=== PATIENT | male | born 1960 | race African-American/Black ===

== ENCOUNTER 2017-04-02 12:57 | Emergency (ER) | payer MEDICARE, OTHER ==
[2017-04-02 14:54] LABS: ADD MAN DIFF? NO
[2017-04-02 14:56] LABS: BASO % 1 % (0-3); EOS % 0 % (0-3); HEMATOCRIT 40.3 % (39.0-53.0); HEMOGLOBIN 13.1 g/dL (13.0-17.5); LYMPH % 18 % (24-48); MEAN CORPUSCULAR HEMOGLOBIN 27 pg (25-35); MEAN CORPUSCULAR HGB CONC 33 g/dL (31-37); MEAN CORPUSCULAR VOLUME 83 fL (79-100); MONO # 0.3 x10^3/uL (0.0-1.1); MONO % 5 % (0-9); NEUT # 4.4 x10^3uL (1.8-7.7); NEUT % 76 % (31-73); PLATELET COUNT 229 x10^3/uL (140-400); RED BLOOD COUNT 4.85 x10^6/uL (4.30-5.70); WHITE BLOOD COUNT 5.8 x10^3/uL (4.0-11.0)
[2017-04-02] MEDS: ONDANSETRON ODT 4 MG TAB.RAPDIS. PO (15:00)
[2017-04-02] MEDS: oxyCODONE/APAP 10/325 1 TAB TABLET PO (15:02)
[2017-04-02 15:07] LABS: ANION GAP 12 (6-14); BLOOD UREA NITROGEN 19 mg/dL (8-26); CALCIUM 9.4 mg/dL (8.5-10.1); CARBON DIOXIDE 23 mmol/L (21-32); CHLORIDE 100 mmol/L (98-107); CREATININE 1.7 mg/dL (0.7-1.3); GFR 50.2; GLUCOSE 83 mg/dL (70-99); POTASSIUM 4.7 mmol/L (3.5-5.1); SODIUM 135 mmol/L (136-145)
[2017-04-02 15:11] LABS: URIC ACID 6.9 mg/dL (3.5-7.2)
== END 2017-04-02 15:45 | disposition home or self-care (01) ==
LOC: ER 12:57
DX: M10.9 Gout, unspecified (principal); E78.00 Pure hypercholesterolemia, unspecified; I10 Essential (primary) hypertension; Z90.49 Acquired absence of other specified parts of digestive tract
CPT/HCPCS: 36415; 73660; 80048; 84550; 85025; 99285; Q0162

== ENCOUNTER → 2018-09-01 | Outpatient (CLI) | payer OTHER ==
[2017-04-02 15:40] VITALS: BP 144/95
--- NOTE | 2018-09-01 11:03 | RAD ---
Left periareolar ultrasound, 09/01/2018: HISTORY: Lump The area of clinical concern posterior to the left ear was carefully scanned. There is a 4 x 9 x 12 mm subcutaneous nodule at that level. It is wider than tall. Its margins appear smooth. It demonstrates slightly hyperechoic and heterogeneous internal echoes. The sonographic appearance is nonspecific, however, this is most likely a lymph node. No abnormal fluid collection or other abnormality is seen in this region Electronically signed by: Mitul Robbins MD (09/01/2018 11:00 AM) [facility]
== END | disposition home or self-care (01) ==
LOC: US 10:01
PROVIDERS: ATTEND Internal Medicine Hematology & Oncology
DX: R22.1 Localized swelling, mass and lump, neck (principal); D64.9 Anemia, unspecified; D72.819 Decreased white blood cell count, unspecified
CPT/HCPCS: 76536

== ENCOUNTER 2018-11-12 20:11 | Inpatient (IN) | payer OTHER, MEDICAID ==
[~2018-11-12] VITALS: Ht 177.8 cm; Wt 99.0 kg
[~2018-11-12 20:11] MED LIST: AMLO10TA8 PO; ATOR40TA59 PO; HYDR-2869 PO; ISOS30TA4 PO
[2018-11-12] MEDS ORDERED: IPRATRPIUM/ALBUTEROL 0.5/2.5MG 3 ML NEBU. NEB ONE (22:45)
[2018-11-12] MEDS ORDERED: ASPIRIN 325 MG TABLET PO ONE (22:45)
[2018-11-12] MEDS ORDERED: DEXAMETHASONE SOD PHOS 20 MG/5 ML VIAL. IV ONE (22:45)
[2018-11-12] MEDS ORDERED: LABETALOL 20 MG/4 ML DISP.SYRIN. IVP ONE (22:45)
[2018-11-12 22:51] LABS: BASO % 1 % (0-3); EOS # 0.1 x10^3/uL (0.0-0.7); EOS % 2 % (0-3); HEMATOCRIT 33.9 % (39.0-53.0); HEMOGLOBIN 11.3 g/dL (13.0-17.5); LYMPH # 1.6 x10^3/uL (1.0-4.8); LYMPH % 28 % (24-48); MEAN CORPUSCULAR HEMOGLOBIN 28 pg (25-35); MEAN CORPUSCULAR HGB CONC 33 g/dL (31-37); MEAN CORPUSCULAR VOLUME 82 fL (79-100); MONO # 0.6 x10^3/uL (0.0-1.1); MONO % 10 % (0-9); NEUT # 3.5 x10^3/uL (1.8-7.7); NEUT % 60 % (31-73); PLATELET COUNT 239 x10^3/uL (140-400); RED BLOOD COUNT 4.11 x10^6/uL (4.30-5.70); WHITE BLOOD COUNT 5.7 x10^3/uL (4.0-11.0)
--- NOTE | 2018-11-12 22:57 | RAD ---
Exam: Chest 2 views INDICATION: Shortness of breath TECHNIQUE: Frontal and lateral views of the chest Comparisons: 10/17/2018 FINDINGS: The cardiomediastinal silhouette and pulmonary vessels are within normal limits. The lung and pleural spaces are clear. IMPRESSION: No acute cardiopulmonary process. Electronically signed by: Marie Hugo MD (11/12/2018 10:54 PM) [facility]
[2018-11-12 23:02] LABS: CALCIUM 9.3 mg/dL (8.5-10.1); CREATININE 1.4 mg/dL (0.7-1.3); GFR 62.6; POTASSIUM 3.5 mmol/L (3.5-5.1)
[2018-11-12 23:08] LABS: ALBUMIN 3.4 g/dL (3.4-5.0); ALBUMIN/GLOBULIN RATIO 0.8 (1.0-1.7); MAGNESIUM 1.4 mg/dL (1.8-2.4); TOTAL BILIRUBIN 0.3 mg/dL (0.2-1.0); TOTAL PROTEIN 7.8 g/dL (6.4-8.2)
--- NOTE | 2018-11-12 23:45 | PHYS DOC ---
Past Medical History Past Medical History: High Cholesterol, Hypertension Additional Past Medical Histor: BORDERLINE DM Past Surgical History: Appendectomy Additional Past Surgical Histo: BILATERAL KNE REPLACEMENTS, INGUINAL HERNIA Additional Information: Quit 10-15 years ago Alcohol Use: None Drug Use: None Adult General Chief Complaint Chief Complaint: HYPERTENSION HPI HPI Patient is a 58 year old [f__sex] who presents with [] Review of Systems Review of Systems Constitutional: Denies fever or chills [] Eyes: Denies change in visual acuity, redness, or eye pain [] HENT: Denies nasal congestion or sore throat [] Respiratory: Denies cough or shortness of breath [] Cardiovascular: No additional information not addressed in HPI [] GI: Denies abdominal pain, nausea, vomiting, bloody stools or diarrhea [] : Denies dysuria or hematuria [] Musculoskeletal: Denies back pain or joint pain [] Integument: Denies rash or skin lesions [] Neurologic: Denies headache, focal weakness or sensory changes [] Endocrine: Denies polyuria or polydipsia [] All other systems were reviewed and found to be within normal limits, except as documented in this note. Current Medications Current Medications Current Medications Medications (Trade) Dose Ordered Sig/Austyn Start Time Stop Time Status Last Admin Dose Admin Albuterol/ Ipratropium (Duoneb) 3 ml 1X ONCE 11/12/18 22:45 11/12/18 22:46 DC 11/12/18 22:59 3 ML Aspirin (Milagros Aspirin) 325 mg 1X ONCE 11/12/18 22:45 11/12/18 22:46 DC 11/12/18 22:57 325 MG Dexamethasone Sodium Phosphate (Decadron) 10 mg 1X ONCE 11/12/18 22:45 11/12/18 22:46 DC 11/12/18 22:57 10 MG Labetalol HCl (Normodyne Iv Push) 20 mg 1X ONCE 11/12/18 22:45 11/12/18 22:46 DC 11/12/18 22:57 20 MG Allergies Allergies Allergies Coded Allergies Type Severity Reaction Last Updated Verified lisinopril Allergy Severe 10/14/18 Yes Penicillins Allergy Intermediate 10/18/18 Yes Physical Exam Physical Exam Constitutional: Well developed, well nourished, no acute distress, non-toxic appearance. [] HENT: Normocephalic, atraumatic, bilateral external ears normal, oropharynx moist, no oral exudates, nose normal. [] Eyes: PERRLA, EOMI, conjunctiva normal, no discharge. [] Neck: Normal range of motion, no tenderness, supple, no stridor. [] Cardiovascular:Heart rate regular rhythm, no murmur [] Lungs & Thorax: Bilateral breath sounds clear to auscultation [] Abdomen: Bowel sounds normal, soft, no tenderness, no masses, no pulsatile masses. [] Skin: Warm, dry, no erythema, no rash. [] Back: No tenderness, no CVA tenderness. [] Extremities: No tenderness, no cyanosis, no clubbing, ROM intact, no edema. [] Neurologic: Alert and oriented X 3, normal motor function, normal sensory function, no focal deficits noted. [] Psychologic: Affect normal, judgement normal, mood normal. [] Current Patient Data Vital Signs Vital Signs Date Time Temp Pulse Resp B/P (MAP) Pulse Ox O2 Delivery O2 Flow Rate FiO2 11/12/18 23:00 100 Room Air 11/12/18 22:57 79 200/110 11/12/18 22:55 18 11/12/18 21:29 98.2 98.2 Lab Values Laboratory Tests Test 11/12/18 22:15 White Blood Count 5.7 x10^3/uL (4.0-11.0) Red Blood Count 4.11 x10^6/uL (4.30-5.70) L Hemoglobin 11.3 g/dL (13.0-17.5) L Hematocrit 33.9 % (39.0-53.0) L Mean Corpuscular Volume 82 fL (79-100) Mean Corpuscular Hemoglobin 28 pg (25-35) Mean Corpuscular Hemoglobin Concent 33 g/dL (31-37) Red Cell Distribution Width 15.0 % (11.5-14.5) H Platelet Count 239 x10^3/uL (140-400) Neutrophils (%) (Auto) 60 % (31-73) Lymphocytes (%) (Auto) 28 % (24-48) Monocytes (%) (Auto) 10 % (0-9) H Eosinophils (%) (Auto) 2 % (0-3) Basophils (%) (Auto) 1 % (0-3) Neutrophils # (Auto) 3.5 x10^3/uL (1.8-7.7) Lymphocytes # (Auto) 1.6 x10^3/uL (1.0-4.8) Monocytes # (Auto) 0.6 x10^3/uL (0.0-1.1) Eosinophils # (Auto) 0.1 x10^3/uL (0.0-0.7) Basophils # (Auto) 0.0 x10^3/uL (0.0-0.2) Sodium Level 141 mmol/L (136-145) Potassium Level 3.5 mmol/L (3.5-5.1) Chloride Level 103 mmol/L (98-107) Carbon Dioxide Level 26 mmol/L (21-32) Anion Gap 12 (6-14) Blood Urea Nitrogen 18 mg/dL (8-26) Creatinine 1.4 mg/dL (0.7-1.3) H Estimated GFR (Cockcroft-Gault) 62.6 BUN/Creatinine Ratio 13 (6-20) Glucose Level 100 mg/dL (70-99) H Lactic Acid Level 0.6 mmol/L (0.4-2.0) Calcium Level 9.3 mg/dL (8.5-10.1) Magnesium Level 1.4 mg/dL (1.8-2.4) L Total Bilirubin 0.3 mg/dL (0.2-1.0) Aspartate Amino Transferase (AST) 29 U/L (15-37) Alanine Aminotransferase (ALT) 56 U/L (16-63) Alkaline Phosphatase 92 U/L (46-116) Creatine Kinase 293 U/L (39-308) Creatine Kinase MB (Mass) 1.3 ng/mL (0.0-3.6) Creatine Kinase MB Relative Index 0.4 % (0-4) Troponin I Quantitative < 0.017 ng/mL (0.000-0.055) EF-Rvr-H-Type Natriuretic Peptide 185 pg/mL (0-124) H Total Protein 7.8 g/dL (6.4-8.2) Albumin 3.4 g/dL (3.4-5.0) Albumin/Globulin Ratio 0.8 (1.0-1.7) L Lipase 181 U/L (73-393) Laboratory Tests 11/12/18 22:15 Laboratory Tests 11/12/18 22:15 EKG EKG @2208 NSR at 87bpm, NO ST elevation, QRS 78ms, QT/QTc 378/455ms Radiology/Procedures Radiology/Procedures [] Course & Med Decision Making Course & Med Decision Making Pertinent Labs and Imaging studies reviewed. (See chart for details) [] Dragon Disclaimer Dragon Disclaimer This electronic medical record was generated, in whole or in part, using a voice recognition dictation system. Departure Departure Impression: Primary Impression: Hypertensive urgency Additional Impressions: Bronchitis Hypomagnesemia Disposition: ADMITTED INPATIENT [facility] Condition: STABLE Referrals: MATTEO HERNANDEZ MD (PCP) Problem Qualifiers AYDEN ALANIZ DO Nov 12, 2018 23:45
[2018-11-12] MEDS ORDERED: hydrALAZINE 20 MG/ML VIAL. IVP ONE (23:55)
[2018-11-12] MEDS ORDERED: cloNIDine HCL 0.1 MG TABLET PO ONE (23:55)
[2018-11-12] MEDS ORDERED: KETOROLAC 15 MG/ML VIAL. IV ONE (23:55)
[2018-11-13] VITALS (7 sets, daily range): BP systolic 122–178; BP diastolic 70–96
[2018-11-13] MEDS ORDERED: ACETAMINOPHEN 325 MG TABLET. PO PRN
[2018-11-13] MEDS ORDERED: hydrALAZINE 20 MG/ML VIAL. IVP PRN
[2018-11-13] MEDS ORDERED: ONDANSETRON PF 4 MG/2 ML VIAL. IV PRN
[2018-11-13] MEDS ORDERED: MAGNESIUM SULFATE 2GM 50 ML IV ONE ×2 (00:30→00:45)
--- NOTE | 2018-11-13 01:21 | RAD ---
CT head without contrast: Reason for examination: Headaches. Hypertensive. Axial images were obtained through the brain. No contrast was administered. Exposure: One or more of the following individualized dose reduction techniques were utilized for this examination: 1. Automated exposure control 2. Adjustment of the mA and/or kV according to patient size 3. Use of iterative reconstruction technique. Ventricular systems are symmetric and not dilated. No midline shift is seen. There is no evidence of intracranial hemorrhage, infarct, mass or edema. No abnormalities are seen at the orbits. There is some mild mucosal disease in the ethmoid sinuses. Remaining paranasal sinuses are clear. Mastoid air cells are clear. No acute skull abnormality is seen. IMPRESSION: No acute intracranial abnormality. Mucosal disease in ethmoid sinuses. Electronically signed by: Bianca Moscoso MD (11/13/2018 1:18 AM) [facility]
--- NOTE | 2018-11-13 06:58 | EKG ---
[facility] [address] [place] [address] Test Date: 2018-11-12 Test Time: 22:08:45 Pat Name: ELENI IRENE Department: Room: 261 1 Gender: M [employer] Operator: : [id number] Requested By: AYDEN ALANIZ Order Number: [id number] Reading MD: Aldair Sanchez MD Measurements Intervals [place] Rate: 86 P: 53 TX: 168 QRS: -18 QRSD: 78 T: 36 QT: 378 QTc: 455 Interpretive Statements SINUS RHYTHM Electronically Signed On 11-13-2018 18:15:22 CDT by Aldair Sanchez MD
[2018-11-13 07:13] LABS: CHOLESTEROL/HDL RATIO 4.6
[2018-11-13] MEDS ORDERED: INSULIN LISPRO 300 UNITS/3 ML VIAL. SQ SCH (08:00)
[2018-11-13] MEDS: IPRATRPIUM/ALBUTEROL 0.5/2.5MG 3 ML NEBU. NEB SCH ×4 (08:17→19:36)
[2018-11-13] MEDS ORDERED: IV DEXTROSE 5% 250 ML BAG. IV PRN ×2 (08:45)
[2018-11-13] MEDS ORDERED: DEXTROSE 50% 25 GM / 50ML DISP.SYRIN. IV PRN ×2 (08:45)
[2018-11-13] MEDS: ISOSORBIDE MONONITRATE ER 30 MG TAB.ER.24H PO SCH (10:23)
[2018-11-13] MEDS: amLODIPine BESYLATE 10 MG TABLET PO SCH (10:24)
--- NOTE | 2018-11-13 11:02 | PDOC1 ---
History and Physical Date of Admission Date of Admission DATE: 11/13/18 TIME: 11:02 Identification/Chief Complaint Chief Complaint 58 yr old male seen in er with uncontrolled hypertension, headache, has known CKD, Troponin i neg x 3 has hx angioedema hx to ACEI Past Medical History Past Medical History Past Medical History Past Medical History Past Medical History: High Cholesterol, Hypertension, obesity Additional Past Medical Histor: BORDERLINE DM Past Surgical History: Appendectomy Additional Past Surgical Histo: BILATERAL KNE REPLACEMENTS, INGUINAL HERNIA Additional Information: Quit 10-15 years ago Alcohol Use: None Drug Use: None PAST SURGICAL HISTORY Past Surgical History: Hernia Repair, Total knee replacement (bilateral), Other FAMILY HISTORY Family History: Hypertension SOCIAL HISTORY Smoke: No ALCOHOL: none Drugs: None Lives: Alone family hx obesity Cardiovascular: HTN, Hyperlipidemia GI: No pertinent hx Heme/Onc: Anemia NOS Musculoskeletal: Osteoarthritis Rheumatologic: No pertinent hx Infectious disease: No pertinent hx Renal/: No pertinent hx, Chronic renal insuff Endocrine: Diabetes Past Surgical History Past Surgical History: Hernia Repair, Total knee replacement, Other Family History Family History: Hypertension Social History Smoke: No ALCOHOL: none Drugs: None Current Problem List Problem List Problems Medical Problems: (1) Bronchitis Status: Acute (2) Hypertensive urgency Status: Acute (3) Hypomagnesemia Status: Acute Current Medications Current Medications Current Medications Aspirin (Milagros Aspirin) 325 mg 1X ONCE PO Last administered on 11/12/18at 22:57; Start 11/12/18 at 22:45; Stop 11/12/18 at 22:46; Status DC Dexamethasone Sodium Phosphate (Decadron) 10 mg 1X ONCE IV Last administered on 11/12/18at 22:57; Start 11/12/18 at 22:45; Stop 11/12/18 at 22:46; Status DC Albuterol/ Ipratropium (Duoneb) 3 ml 1X ONCE NEB Last administered on 11/12/18at 22:59; Start 11/12/18 at 22:45; Stop 11/12/18 at 22:46; Status DC Labetalol HCl (Normodyne Iv Push) 20 mg 1X ONCE IVP Last administered on 10/20 08/06at 22:57; Start 11/12/18 at 22:45; Stop 11/12/18 at 22:46; Status DC Hydralazine HCl (Apresoline Inj) 20 mg 1X ONCE IVP Last administered on 11/13/18at 00:55; Start 11/12/18 at 23:55; Stop 11/12/18 at 23:56; Status DC Clonidine HCl (Catapres) 0.1 mg 1X ONCE PO Last administered on 11/13/18at 00:35; Start 11/12/18 at 23:55; Stop 11/12/18 at 23:56; Status DC Ketorolac Tromethamine (Toradol 15mg Vial) 15 mg 1X ONCE IV Last administered on 11/13/18at 00:35; Start 11/12/18 at 23:55; Stop 11/12/18 at 23:56; Status DC Ondansetron HCl (Zofran) 4 mg PRN Q8HRS PRN IV NAUSEA/VOMITING; Start 11/13/18 at 00:00; Stop 11/13/18 at 23:59 Acetaminophen (Tylenol) 650 mg PRN Q4HRS PRN PO FEVER; Start 11/13/18 at 00:00; Stop 11/13/18 at 23:59 Albuterol/ Ipratropium (Duoneb) 3 ml RTQID NEB Last administered on 11/13/18at 08:17; Start 11/13/18 at 08:00; Stop 11/14/18 at 07:59 Hydralazine HCl (Apresoline Inj) 10 mg PRN Q4HRS PRN IVP ELEVATED BP, SEE COMMENTS; Start 11/13/18 at 00:00 Insulin Human Lispro (HumaLOG) 0-5 UNITS TIDWMEALS SQ ; Start 11/13/18 at 08:00; Stop 11/13/18 at 08:40; Status DC Dextrose (Dextrose 50%-Water Syringe) 12.5 gm PRN Q15MIN PRN IV SEE COMMENTS; Start 11/13/18 at 00:00 Dextrose 250 ml PRN Q15MIN PRN IV SEE COMMENTS; Start 11/13/18 at 00:00 Magnesium Sulfate 50 ml @ 25 mls/hr 1X ONCE IV Last administered on 11/13/18at 00:52; Start 11/13/18 at 00:45; Stop 11/13/18 at 02:44; Status DC Magnesium Sulfate 50 ml @ As Directed STK-MED ONCE IV ; Start 11/13/18 at 00:30; Stop 11/13/18 at 00:32; Status DC Amlodipine Besylate (Norvasc) 10 mg DAILY PO Last administered on 11/13/18at 10:29; Start 11/13/18 at 09:00 Atorvastatin Calcium (Lipitor) 80 mg QHS PO ; Start 11/13/18 at 21:00 Hydralazine HCl (Apresoline) 50 mg TID PO Last administered on 11/13/18at 10:29; Start 11/13/18 at 09:00 Isosorbide Mononitrate (Imdur) 90 mg DAILY PO Last administered on 11/13/18at 10:29; Start 11/13/18 at 09:00 Insulin Human Lispro (HumaLOG) 0-9 UNITS TIDWMEALS SQ ; Start 11/13/18 at 12:00 Dextrose (Dextrose 50%-Water Syringe) 12.5 gm PRN Q15MIN PRN IV SEE COMMENTS; Start 11/13/18 at 08:45; Status UNV Dextrose 250 ml PRN Q15MIN PRN IV SEE COMMENTS; Start 11/13/18 at 08:45; Status UNV Active Scripts Active Atorvastatin Calcium 40 Mg Tablet 80 Mg PO QHS Isosorbide Mononitrate Er (Isosorbide Mononitrate) 30 Mg Tab.er.24h 90 Mg PO DAILY Amlodipine Besylate 10 Mg Tablet 10 Mg PO DAILY Hydralazine Hcl 50 Mg Tablet 50 Mg PO TID Allergies Allergies: Coded Allergies: lisinopril (Verified Allergy, Severe, 10/14/18) angioedema Penicillins (Verified Allergy, Intermediate, 10/18/18) ROS Review of System Review of Systems Review of Systems Constitutional: Denies fever or chills [] Eyes: Denies change in visual acuity, redness, or eye pain [] HENT: Denies nasal congestion or sore throat [] Respiratory: Denies cough or shortness of breath [] Cardiovascular: No additional information not addressed in HPI [] GI: Denies abdominal pain, nausea, vomiting, bloody stools or diarrhea [] : Denies dysuria or hematuria [] Musculoskeletal: Denies back pain or joint pain [] Integument: Denies rash or skin lesions [] Neurologic: Denies headache, focal weakness or sensory changes [] Endocrine: Denies polyuria or polydipsia [] 14 pt systems were reviewed and found to be within normal limits, except as documented HEENT: YES: [place] Physical Exam Physical Exam Physical Exam Physical Exam Constitutional: Well developed, well nourished, no acute distress, non-toxic appearance. [] HENT: Normocephalic, atraumatic, bilateral external ears normal, oropharynx moist, no oral exudates, nose normal. [] Eyes: PERRLA, EOMI, conjunctiva normal, no discharge. [] Neck: Normal range of motion, no tenderness, supple, no stridor. [] Cardiovascular:Heart rate regular rhythm, no murmur [] Lungs & Thorax: Bilateral breath sounds clear to auscultation [] Abdomen: Bowel sounds normal, soft, no tenderness, no masses, no pulsatile masses. [] Skin: Warm, dry, no erythema, no rash. [] Back: No tenderness, no CVA tenderness. [] Extremities: No tenderness, no cyanosis, no clubbing, ROM intact, no edema. [] Neurologic: Alert and oriented X 3, normal motor function, normal sensory function, no focal deficits noted. [] Psychologic: Affect normal, judgement normal, mood normal. [] General: Oriented X3, Cooperative, No acute distress Lungs: Clear to auscultation Abdomen: Normal bowel sounds, Soft Rectal Exam: not examined PELVIC: Examination not indicated Extremities: No cyanosis Neuro: Normal speech, Sensation intact, Cranial nerves 3-12 NL Psych/Mental Status: Mental status NL, Mood NL Vitals Vitals Vital Signs Date Time Temp Pulse Resp B/P (MAP) Pulse Ox O2 Delivery O2 Flow Rate FiO2 11/13/18 10:56 98.1 87 18 178/96 (123) 95 Room Air 98.1 Labs Labs Laboratory Tests Test 11/12/18 22:15 11/13/18 02:50 11/13/18 06:30 White Blood Count 5.7 x10^3/uL (4.0-11.0) Red Blood Count 4.11 x10^6/uL (4.30-5.70) Hemoglobin 11.3 g/dL (13.0-17.5) Hematocrit 33.9 % (39.0-53.0) Mean Corpuscular Volume 82 fL (79-100) Mean Corpuscular Hemoglobin 28 pg (25-35) Mean Corpuscular Hemoglobin Concent 33 g/dL (31-37) Red Cell Distribution Width 15.0 % (11.5-14.5) Platelet Count 239 x10^3/uL (140-400) Neutrophils (%) (Auto) 60 % (31-73) Lymphocytes (%) (Auto) 28 % (24-48) Monocytes (%) (Auto) 10 % (0-9) Eosinophils (%) (Auto) 2 % (0-3) Basophils (%) (Auto) 1 % (0-3) Neutrophils # (Auto) 3.5 x10^3/uL (1.8-7.7) Lymphocytes # (Auto) 1.6 x10^3/uL (1.0-4.8) Monocytes # (Auto) 0.6 x10^3/uL (0.0-1.1) Eosinophils # (Auto) 0.1 x10^3/uL (0.0-0.7) Basophils # (Auto) 0.0 x10^3/uL (0.0-0.2) Sodium Level 141 mmol/L (136-145) Potassium Level 3.5 mmol/L (3.5-5.1) Chloride Level 103 mmol/L (98-107) Carbon Dioxide Level 26 mmol/L (21-32) Anion Gap 12 (6-14) Blood Urea Nitrogen 18 mg/dL (8-26) Creatinine 1.4 mg/dL (0.7-1.3) Estimated GFR (Cockcroft-Gault) 62.6 BUN/Creatinine Ratio 13 (6-20) Glucose Level 100 mg/dL (70-99) Lactic Acid Level 0.6 mmol/L (0.4-2.0) Calcium Level 9.3 mg/dL (8.5-10.1) Magnesium Level 1.4 mg/dL (1.8-2.4) Total Bilirubin 0.3 mg/dL (0.2-1.0) Aspartate Amino Transf (AST/SGOT) 29 U/L (15-37) Alanine Aminotransferase (ALT/SGPT) 56 U/L (16-63) Alkaline Phosphatase 92 U/L (46-116) Creatine Kinase 293 U/L (39-308) Creatine Kinase MB (Mass) 1.3 ng/mL (0.0-3.6) Creatine Kinase MB Relative Index 0.4 % (0-4) Troponin I Quantitative < 0.017 ng/mL (0.000-0.055) < 0.017 ng/mL (0.000-0.055) < 0.017 ng/mL (0.000-0.055) SJ-Xub-X-Type Natriuretic Peptide 185 pg/mL (0-124) Total Protein 7.8 g/dL (6.4-8.2) Albumin 3.4 g/dL (3.4-5.0) Albumin/Globulin Ratio 0.8 (1.0-1.7) Lipase 181 U/L (73-393) Triglycerides Level 38 mg/dL (0-150) Cholesterol Level 220 mg/dL (0-200) LDL Cholesterol, Calculated 164 mg/dL (0-100) VLDL Cholesterol, Calculated 8 mg/dL (0-40) Non-HDL Cholesterol Calculated 172 mg/dL (0-129) HDL Cholesterol 48 mg/dL (40-60) Cholesterol/HDL Ratio 4.6 Laboratory Tests Test 11/12/18 22:15 11/13/18 02:50 11/13/18 06:30 White Blood Count 5.7 x10^3/uL (4.0-11.0) Red Blood Count 4.11 x10^6/uL (4.30-5.70) Hemoglobin 11.3 g/dL (13.0-17.5) Hematocrit 33.9 % (39.0-53.0) Mean Corpuscular Volume 82 fL (79-100) Mean Corpuscular Hemoglobin 28 pg (25-35) Mean Corpuscular Hemoglobin Concent 33 g/dL (31-37) Red Cell Distribution Width 15.0 % (11.5-14.5) Platelet Count 239 x10^3/uL (140-400) Neutrophils (%) (Auto) 60 % (31-73) Lymphocytes (%) (Auto) 28 % (24-48) Monocytes (%) (Auto) 10 % (0-9) Eosinophils (%) (Auto) 2 % (0-3) Basophils (%) (Auto) 1 % (0-3) Neutrophils # (Auto) 3.5 x10^3/uL (1.8-7.7) Lymphocytes # (Auto) 1.6 x10^3/uL (1.0-4.8) Monocytes # (Auto) 0.6 x10^3/uL (0.0-1.1) Eosinophils # (Auto) 0.1 x10^3/uL (0.0-0.7) Basophils # (Auto) 0.0 x10^3/uL (0.0-0.2) Sodium Level 141 mmol/L (136-145) Potassium Level 3.5 mmol/L (3.5-5.1) Chloride Level 103 mmol/L (98-107) Carbon Dioxide Level 26 mmol/L (21-32) Anion Gap 12 (6-14) Blood Urea Nitrogen 18 mg/dL (8-26) Creatinine 1.4 mg/dL (0.7-1.3) Estimated GFR (Cockcroft-Gault) 62.6 BUN/Creatinine Ratio 13 (6-20) Glucose Level 100 mg/dL (70-99) Lactic Acid Level 0.6 mmol/L (0.4-2.0) Calcium Level 9.3 mg/dL (8.5-10.1) Magnesium Level 1.4 mg/dL (1.8-2.4) Total Bilirubin 0.3 mg/dL (0.2-1.0) Aspartate Amino Transf (AST/SGOT) 29 U/L (15-37) Alanine Aminotransferase (ALT/SGPT) 56 U/L (16-63) Alkaline Phosphatase 92 U/L (46-116) Creatine Kinase 293 U/L (39-308) Creatine Kinase MB (Mass) 1.3 ng/mL (0.0-3.6) Creatine Kinase MB Relative Index 0.4 % (0-4) Troponin I Quantitative < 0.017 ng/mL (0.000-0.055) < 0.017 ng/mL (0.000-0.055) < 0.017 ng/mL (0.000-0.055) CE-Odb-O-Type Natriuretic Peptide 185 pg/mL (0-124) Total Protein 7.8 g/dL (6.4-8.2) Albumin 3.4 g/dL (3.4-5.0) Albumin/Globulin Ratio 0.8 (1.0-1.7) Lipase 181 U/L (73-393) Triglycerides Level 38 mg/dL (0-150) Cholesterol Level 220 mg/dL (0-200) LDL Cholesterol, Calculated 164 mg/dL (0-100) VLDL Cholesterol, Calculated 8 mg/dL (0-40) Non-HDL Cholesterol Calculated 172 mg/dL (0-129) HDL Cholesterol 48 mg/dL (40-60) Cholesterol/HDL Ratio 4.6 Images Images Tricuspid Valve TR P. Velocity 345cm/s RAP ESTIMATE 3mmHg TR Peak Gr. 48mmHg RVSP 51mmHg Pulmonary Vein S1 Velocity 69.5cm/s S2 Velocity 45.41cm/s D2 Velocity 45.4cm/s LEFT VENTRICLE The left ventricle is normal size. There is normal left ventricular wall thickness. The left ventricular systolic function is normal. The Ejection Fraction is 55-60%. There is normal LV segmental wall motion. RIGHT VENTRICLE The right ventricle is normal size. The right ventricular systolic function is normal. ATRIA The left atrium size is normal. The right atrium size is normal. The interatrial septum is intact with no evidence for an atrial septal defect or patent foramen ovale as noted on 2-D or Doppler imaging. AORTIC VALVE The aortic valve is mildly thickened but opens well. Doppler and Color Flow revealed no significant aortic regurgitation. There is no significant aortic valvular stenosis. MITRAL VALVE The mitral valve is calcified and myxomatous but opens well. There is no evidence of mitral valve prolapse. There is no mitral valve stenosis. Doppler and Color-flow revealed trace mitral regurgitation. TRICUSPID VALVE The tricuspid valve is normal in structure and function. Doppler and Color Flow revealed trace tricuspid regurgitation. There is moderate pulmonary hypertension. The PA pressure was estimated at 51 mmHg. There is no tricuspid valve stenosis. PULMONIC VALVE The pulmonic valve is not well visualized. Doppler and Color Flow revealed no pulmonic valvular regurgitation. There is no pulmonic valvular stenosis. GREAT VESSELS The aortic root is normal in size. The ascending aorta is normal in size. The IVC is normal in size and collapses >50% with inspiration. PERICARDIAL EFFUSION There is no evidence of significant pericardial effusion. Critical Notification Critical Value: No <Conclusion> The left ventricular systolic function is normal. The Ejection Fraction is 55-60%. There is normal LV segmental wall motion. Trace mitral regurgitation. Trace tricuspid regurgitation. The PA pressure was estimated at 51 mmHg. There is no evidence of significant pericardial effusion. Signed by : Carlos Randolph, Electronically Approved : 10/17/2018 16:40:46 CT head without contrast: Reason for examination: Headaches. Hypertensive. Axial images were obtained through the brain. No contrast was administered. Exposure: One or more of the following individualized dose reduction techniques were utilized for this examination: 1. Automated exposure control 2. Adjustment of the mA and/or kV according to patient size 3. Use of iterative reconstruction technique. Ventricular systems are symmetric and not dilated. No midline shift is seen. There is no evidence of intracranial hemorrhage, infarct, mass or edema. No abnormalities are seen at the orbits. There is some mild mucosal disease in the ethmoid sinuses. Remaining paranasal sinuses are clear. Mastoid air cells are clear. No acute skull abnormality is seen. IMPRESSION: No acute intracranial abnormality. Mucosal disease in ethmoid sinuses. Electronically signed by: Bianca Moscoso MD (11/13/2018 1:18 AM) [facility] VTE Prophylaxis Ordered VTE Prophylaxis Devices: No VTE Pharmacological Prophylaxi: Yes Assessment/Plan Assessment/Plan Impression: Hypertensive urgency, POA ECHO 2018 Ejection Fraction is 55-60%.normal LV segmental wall motion. Trace mitral regurgitation. Trace tricuspid regurgitation. PA pressure was estimated at 51 mmHg. C/W PULM HTN Bronchitis, acute HX diabetes Hypomagnesemia hx Angioedema secondary to lisinopril Dyslipidemia on statin and fish oil hx respiratory failure, secondary to SAMSON induced angioedema. 10/17/18 Chronic kidney disease. on ct head 11/12 No acute intracranial abnormality. Mucosal disease in ethmoid sinuses. ADMITTED cvc bed iv bp support cardiology consult nephrology consult serial troponin i dvt prophylaxis accuchecks 74 MIN pt exam, chart review, > 50% of time spent with exam, chart review, pt care coordination SAMMY DAVE MD Nov 13, 2018 11:02
[2018-11-13] MEDS: INSULIN LISPRO 300 UNITS/3 ML VIAL. SQ SCH ×2 (12:00→16:49)
[2018-11-13] MEDS: guaiFENesin DM 600/30MG 1 TAB TAB.ER.12H PO SCH ×2 (12:56→22:35)
--- NOTE | 2018-11-13 13:28 | PDOC2 ---
CONSULT Date of Consult Date of Consult DATE: 11/13/18 TIME: 13:22 Reason for Consult Reason for Consult: RENAL FAILURE Referring Physician Referring Physician: TENZIN Identification/Chief Complaint Chief Complaint HEADACHE Source Source: Chart review, Patient History of Present Illness Reason for Visit: THIS IS A 58 YR OLD WITH HEADACHE AND ON EVALUATION NOTED TO HAVE HTN URGENCY. CR OF 1.4. HAD SHAUNA LAST MONTH FROM RELATIVE HYPOTENSION WHICH RESOLVED AND CR OF ABOUT 1.5 SEEMS TO ABOUT HIS BASELINE. NO REGULAR NSAID USE. NO OTHER HX AND HE IS ABLE TO EMPTY HIS BLADDER. LOW MAG NOTED WELL. DENIED ANY DIURETIC USE Past Medical History Cardiovascular: HTN, Hyperlipidemia GI: No pertinent hx Heme/Onc: Anemia NOS Musculoskeletal: Osteoarthritis Rheumatologic: No pertinent hx Infectious disease: No pertinent hx Renal/: No pertinent hx, Chronic renal insuff Endocrine: Diabetes Past Surgical History Past Surgical History: Hernia Repair, Total knee replacement, Other Family History Family History: Hypertension Social History No ALCOHOL: none Drugs: None Lives: Alone Current Problem List Problem List Problems Medical Problems: (1) Bronchitis Status: Acute (2) Hypertensive urgency Status: Acute (3) Hypomagnesemia Status: Acute Current Medications Current Medications Current Medications Aspirin (Milagros Aspirin) 325 mg 1X ONCE PO Last administered on 11/12/18at 22:57; Start 11/12/18 at 22:45; Stop 11/12/18 at 22:46; Status DC Dexamethasone Sodium Phosphate (Decadron) 10 mg 1X ONCE IV Last administered on 11/12/18at 22:57; Start 11/12/18 at 22:45; Stop 11/12/18 at 22:46; Status DC Albuterol/ Ipratropium (Duoneb) 3 ml 1X ONCE NEB Last administered on 11/12/18at 22:59; Start 11/12/18 at 22:45; Stop 11/12/18 at 22:46; Status DC Labetalol HCl (Normodyne Iv Push) 20 mg 1X ONCE IVP Last administered on 11/12/18at 22:57; Start 11/12/18 at 22:45; Stop 11/12/18 at 22:46; Status DC Hydralazine HCl (Apresoline Inj) 20 mg 1X ONCE IVP Last administered on 11/13/18at 00:55; Start 11/12/18 at 23:55; Stop 11/12/18 at 23:56; Status DC Clonidine HCl (Catapres) 0.1 mg 1X ONCE PO Last administered on 11/13/18at 00:35; Start 11/12/18 at 23:55; Stop 11/12/18 at 23:56; Status DC Ketorolac Tromethamine (Toradol 15mg Vial) 15 mg 1X ONCE IV Last administered on 11/13/18at 00:35; Start 11/12/18 at 23:55; Stop 11/12/18 at 23:56; Status DC Ondansetron HCl (Zofran) 4 mg PRN Q8HRS PRN IV NAUSEA/VOMITING; Start 11/13/18 at 00:00; Stop 11/13/18 at 23:59 Acetaminophen (Tylenol) 650 mg PRN Q4HRS PRN PO FEVER; Start 11/13/18 at 00:00; Stop 11/13/18 at 23:59 Albuterol/ Ipratropium (Duoneb) 3 ml RTQID NEB Last administered on 11/13/18at 11:57; Start 11/13/18 at 08:00; Stop 11/14/18 at 07:59 Hydralazine HCl (Apresoline Inj) 10 mg PRN Q4HRS PRN IVP ELEVATED BP, SEE COMMENTS; Start 11/13/18 at 00:00 Insulin Human Lispro (HumaLOG) 0-5 UNITS TIDWMEALS SQ ; Start 11/13/18 at 08:00; Stop 11/13/18 at 08:40; Status DC Dextrose (Dextrose 50%-Water Syringe) 12.5 gm PRN Q15MIN PRN IV SEE COMMENTS; Start 11/13/18 at 00:00 Dextrose 250 ml PRN Q15MIN PRN IV SEE COMMENTS; Start 11/13/18 at 00:00 Magnesium Sulfate 50 ml @ 25 mls/hr 1X ONCE IV Last administered on 11/13/18at 00:52; Start 11/13/18 at 00:45; Stop 11/13/18 at 02:44; Status DC Magnesium Sulfate 50 ml @ As Directed STK-MED ONCE IV ; Start 11/13/18 at 00:30; Stop 11/13/18 at 00:32; Status DC Amlodipine Besylate (Norvasc) 10 mg DAILY PO Last administered on 11/13/18at 10:29; Start 11/13/18 at 09:00 Atorvastatin Calcium (Lipitor) 80 mg QHS PO ; Start 11/13/18 at 21:00 Hydralazine HCl (Apresoline) 50 mg TID PO Last administered on 11/13/18at 10:29; Start 11/13/18 at 09:00 Isosorbide Mononitrate (Imdur) 90 mg DAILY PO Last administered on 11/13/18at 10:29; Start 11/13/18 at 09:00 Insulin Human Lispro (HumaLOG) 0-9 UNITS TIDWMEALS SQ ; Start 11/13/18 at 12:00 Dextrose (Dextrose 50%-Water Syringe) 12.5 gm PRN Q15MIN PRN IV SEE COMMENTS; Start 11/13/18 at 08:45; Status UNV Dextrose 250 ml PRN Q15MIN PRN IV SEE COMMENTS; Start 11/13/18 at 08:45; Status UNV Enoxaparin Sodium (Lovenox 40mg Syringe) 40 mg Q24H SQ ; Start 11/13/18 at 16:00 Guaifenesin (MUCINEX ER with DM) 2 tab BID PO Last administered on 11/13/18at 12:57; Start 11/13/18 at 12:30 Active Scripts Active Atorvastatin Calcium 40 Mg Tablet 80 Mg PO QHS Isosorbide Mononitrate Er (Isosorbide Mononitrate) 30 Mg Tab.er.24h 90 Mg PO DAILY Amlodipine Besylate 10 Mg Tablet 10 Mg PO DAILY Hydralazine Hcl 50 Mg Tablet 50 Mg PO TID Allergies Allergies: Coded Allergies: lisinopril (Verified Allergy, Severe, 10/14/18) angioedema Penicillins (Verified Allergy, Intermediate, 10/18/18) ROS Review of System FULL ROS NEG EXCEPT BELOW General: YES: Fatigue PSYCHOLOGICAL ROS: YES: Anxiety Eyes: Yes Decreased vision HEENT: YES: Heacaches Genitourinary: YES Other (NOCTURIA) Musculoskeletal: Yes Muscular Weakness Neurological: Yes Weakness Skin: Yes Dry Skin Physical Exam General: Alert, Oriented X3, Cooperative, No acute distress HEENT: Atraumatic, PERRLA, EOMI Lungs: Clear to auscultation Heart: Regular rate Abdomen: Normal bowel sounds, Soft, No tenderness Extremities: No cyanosis Skin: No breakdown Neuro: Normal speech, Sensation intact Psych/Mental Status: Mental status NL, Mood NL MUSCULOSKELETAL: No joint tenderness, No deformity, No swelling Vitals VITALS Vital Signs Date Time Temp Pulse Resp B/P (MAP) Pulse Ox O2 Delivery O2 Flow Rate FiO2 11/13/18 11:57 99 Room Air 11/13/18 10:56 98.1 87 18 178/96 (123) 98.1 Labs Labs Laboratory Tests Test 11/12/18 22:15 11/13/18 02:50 11/13/18 06:30 White Blood Count 5.7 x10^3/uL (4.0-11.0) Red Blood Count 4.11 x10^6/uL (4.30-5.70) Hemoglobin 11.3 g/dL (13.0-17.5) Hematocrit 33.9 % (39.0-53.0) Mean Corpuscular Volume 82 fL (79-100) Mean Corpuscular Hemoglobin 28 pg (25-35) Mean Corpuscular Hemoglobin Concent 33 g/dL (31-37) Red Cell Distribution Width 15.0 % (11.5-14.5) Platelet Count 239 x10^3/uL (140-400) Neutrophils (%) (Auto) 60 % (31-73) Lymphocytes (%) (Auto) 28 % (24-48) Monocytes (%) (Auto) 10 % (0-9) Eosinophils (%) (Auto) 2 % (0-3) Basophils (%) (Auto) 1 % (0-3) Neutrophils # (Auto) 3.5 x10^3/uL (1.8-7.7) Lymphocytes # (Auto) 1.6 x10^3/uL (1.0-4.8) Monocytes # (Auto) 0.6 x10^3/uL (0.0-1.1) Eosinophils # (Auto) 0.1 x10^3/uL (0.0-0.7) Basophils # (Auto) 0.0 x10^3/uL (0.0-0.2) Sodium Level 141 mmol/L (136-145) Potassium Level 3.5 mmol/L (3.5-5.1) Chloride Level 103 mmol/L (98-107) Carbon Dioxide Level 26 mmol/L (21-32) Anion Gap 12 (6-14) Blood Urea Nitrogen 18 mg/dL (8-26) Creatinine 1.4 mg/dL (0.7-1.3) Estimated GFR (Cockcroft-Gault) 62.6 BUN/Creatinine Ratio 13 (6-20) Glucose Level 100 mg/dL (70-99) Lactic Acid Level 0.6 mmol/L (0.4-2.0) Calcium Level 9.3 mg/dL (8.5-10.1) Magnesium Level 1.4 mg/dL (1.8-2.4) 2.0 mg/dL (1.8-2.4) Total Bilirubin 0.3 mg/dL (0.2-1.0) Aspartate Amino Transf (AST/SGOT) 29 U/L (15-37) Alanine Aminotransferase (ALT/SGPT) 56 U/L (16-63) Alkaline Phosphatase 92 U/L (46-116) Creatine Kinase 293 U/L (39-308) Creatine Kinase MB (Mass) 1.3 ng/mL (0.0-3.6) Creatine Kinase MB Relative Index 0.4 % (0-4) Troponin I Quantitative < 0.017 ng/mL (0.000-0.055) < 0.017 ng/mL (0.000-0.055) < 0.017 ng/mL (0.000-0.055) LX-Oez-X-Type Natriuretic Peptide 185 pg/mL (0-124) Total Protein 7.8 g/dL (6.4-8.2) Albumin 3.4 g/dL (3.4-5.0) Albumin/Globulin Ratio 0.8 (1.0-1.7) Lipase 181 U/L (73-393) Triglycerides Level 38 mg/dL (0-150) Cholesterol Level 220 mg/dL (0-200) LDL Cholesterol, Calculated 164 mg/dL (0-100) VLDL Cholesterol, Calculated 8 mg/dL (0-40) Non-HDL Cholesterol Calculated 172 mg/dL (0-129) HDL Cholesterol 48 mg/dL (40-60) Cholesterol/HDL Ratio 4.6 Laboratory Tests Test 11/12/18 22:15 11/13/18 02:50 11/13/18 06:30 White Blood Count 5.7 x10^3/uL (4.0-11.0) Red Blood Count 4.11 x10^6/uL (4.30-5.70) Hemoglobin 11.3 g/dL (13.0-17.5) Hematocrit 33.9 % (39.0-53.0) Mean Corpuscular Volume 82 fL (79-100) Mean Corpuscular Hemoglobin 28 pg (25-35) Mean Corpuscular Hemoglobin Concent 33 g/dL (31-37) Red Cell Distribution Width 15.0 % (11.5-14.5) Platelet Count 239 x10^3/uL (140-400) Neutrophils (%) (Auto) 60 % (31-73) Lymphocytes (%) (Auto) 28 % (24-48) Monocytes (%) (Auto) 10 % (0-9) Eosinophils (%) (Auto) 2 % (0-3) Basophils (%) (Auto) 1 % (0-3) Neutrophils # (Auto) 3.5 x10^3/uL (1.8-7.7) Lymphocytes # (Auto) 1.6 x10^3/uL (1.0-4.8) Monocytes # (Auto) 0.6 x10^3/uL (0.0-1.1) Eosinophils # (Auto) 0.1 x10^3/uL (0.0-0.7) Basophils # (Auto) 0.0 x10^3/uL (0.0-0.2) Sodium Level 141 mmol/L (136-145) Potassium Level 3.5 mmol/L (3.5-5.1) Chloride Level 103 mmol/L (98-107) Carbon Dioxide Level 26 mmol/L (21-32) Anion Gap 12 (6-14) Blood Urea Nitrogen 18 mg/dL (8-26) Creatinine 1.4 mg/dL (0.7-1.3) Estimated GFR (Cockcroft-Gault) 62.6 BUN/Creatinine Ratio 13 (6-20) Glucose Level 100 mg/dL (70-99) Lactic Acid Level 0.6 mmol/L (0.4-2.0) Calcium Level 9.3 mg/dL (8.5-10.1) Magnesium Level 1.4 mg/dL (1.8-2.4) 2.0 mg/dL (1.8-2.4) Total Bilirubin 0.3 mg/dL (0.2-1.0) Aspartate Amino Transf (AST/SGOT) 29 U/L (15-37) Alanine Aminotransferase (ALT/SGPT) 56 U/L (16-63) Alkaline Phosphatase 92 U/L (46-116) Creatine Kinase 293 U/L (39-308) Creatine Kinase MB (Mass) 1.3 ng/mL (0.0-3.6) Creatine Kinase MB Relative Index 0.4 % (0-4) Troponin I Quantitative < 0.017 ng/mL (0.000-0.055) < 0.017 ng/mL (0.000-0.055) < 0.017 ng/mL (0.000-0.055) GB-Xhz-J-Type Natriuretic Peptide 185 pg/mL (0-124) Total Protein 7.8 g/dL (6.4-8.2) Albumin 3.4 g/dL (3.4-5.0) Albumin/Globulin Ratio 0.8 (1.0-1.7) Lipase 181 U/L (73-393) Triglycerides Level 38 mg/dL (0-150) Cholesterol Level 220 mg/dL (0-200) LDL Cholesterol, Calculated 164 mg/dL (0-100) VLDL Cholesterol, Calculated 8 mg/dL (0-40) Non-HDL Cholesterol Calculated 172 mg/dL (0-129) HDL Cholesterol 48 mg/dL (40-60) Cholesterol/HDL Ratio 4.6 Assessment/Plan Assessment/Plan IMP MALIGNANT HTN AND URGENCY HEADACHE DUE TO ABOVE HYPOMAGNESEMIA CKD STAGE 2-MOST LIKELY DUE TO HTN HX OF SHAUNA LAST MONTH-FROM RELATIVE HYPOTENSION-RESOLVED HX OF 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
--- NOTE | 2018-11-13 13:28 | PDOC2 ---
CARDIAC CONSULT DATE OF CONSULT Date of Consult DATE: 11/13/18 TIME: 13:22 REASON FOR CONSULT Reason for Consult: Uncontrolled blood pressure REFERRING PHYSICIAN Referring Physician: Dr. Lamar SOURCE Source: Chart review, Patient HISTORY OF PRESENT ILLNESS HISTORY OF PRESENT ILLNESS This is a 58 yo male who presented secondary to elevated blood pressure and headache. Patient was seen by our service last month for accelerated hypertension and angioedema related to lisinopril. Over the last 3 days, blood pressure has been significantly elevated. Associated with ST. Yesterday, began having tightness in his chest so he decided to come to the ED for further evaluation and treatment. Denies any dizziness, diaphoresis, SOA, or nausea/vomiting. PAST MEDICAL HISTORY Past Medical History Cardiovascular: HTN, Hyperlipidemia GI: No pertinent hx Heme/Onc: Anemia NOS Musculoskeletal: Osteoarthritis Rheumatologic: No pertinent hx Infectious disease: No pertinent hx ENT: No pertinent hx Renal/: CKD Endocrine: Diabetes (borderline) Dermatology: No pertinent hx PAST SURGICAL HISTORY Past Surgical History Hernia Repair, Total knee replacement (bilateral), Other FAMILY HISTORY Family History: Hypertension SOCIAL HISTORY Social History Smoke: No ALCOHOL: none Drugs: None Lives: Alone CURRENT MEDICATIONS CURRENT MEDICATIONS Current Medications Medications (Trade) Dose Ordered Sig/Austyn Route PRN Reason Start Time Stop Time Status Last Admin Dose Admin Aspirin (Milagros Aspirin) 325 mg 1X ONCE PO 11/12/18 22:45 11/12/18 22:46 DC 11/12/18 22:57 Dexamethasone Sodium Phosphate (Decadron) 10 mg 1X ONCE IV 11/12/18 22:45 11/12/18 22:46 DC 11/12/18 22:57 Albuterol/ Ipratropium (Duoneb) 3 ml 1X ONCE NEB 11/12/18 22:45 11/12/18 22:46 DC 11/12/18 22:59 Labetalol HCl (Normodyne Iv Push) 20 mg 1X ONCE IVP 11/12/18 22:45 11/12/18 22:46 DC 11/12/18 22:57 Hydralazine HCl (Apresoline Inj) 20 mg 1X ONCE IVP 11/12/18 23:55 11/12/18 23:56 DC 11/13/18 00:55 Clonidine HCl (Catapres) 0.1 mg 1X ONCE PO 11/12/18 23:55 11/12/18 23:56 DC 11/13/18 00:35 Ketorolac Tromethamine (Toradol 15mg Vial) 15 mg 1X ONCE IV 11/12/18 23:55 11/12/18 23:56 DC 11/13/18 00:35 Albuterol/ Ipratropium (Duoneb) 3 ml RTQID NEB 11/13/18 08:00 11/14/18 07:59 11/13/18 11:57 Magnesium Sulfate 50 ml @ 25 mls/hr 1X ONCE IV 11/13/18 00:45 11/13/18 02:44 DC 11/13/18 00:52 Amlodipine Besylate (Norvasc) 10 mg DAILY PO 11/13/18 09:00 11/13/18 10:29 Hydralazine HCl (Apresoline) 50 mg TID PO 11/13/18 09:00 11/13/18 10:29 Isosorbide Mononitrate (Imdur) 90 mg DAILY PO 11/13/18 09:00 11/13/18 10:29 Guaifenesin (MUCINEX ER with DM) 2 tab BID PO 11/13/18 12:30 11/13/18 12:57 ALLERGIES ALLERGIES: Coded Allergies: lisinopril (Verified Allergy, Severe, 10/14/18) angioedema Penicillins (Verified Allergy, Intermediate, 10/18/18) ROS Review of System 14 point ROS conducted with pertinent positives noted above in HPI. PHYSICAL EXAM PHYSICAL EXAM General: Alert, Oriented X3, Cooperative, No acute distress HEENT: Atraumatic, Lungs: Other (diminished bases) Heart: Regular rate (SR), Normal S1, Normal S2, Other (2/6 systolic murmur to LLS border) Abdomen: Soft, No tenderness Extremities: No cyanosis Skin: No breakdown, No significant lesion Neuro: Normal speech, Sensation intact Psych/Mental Status: Mental status NL, MUSCULOSKELETAL: Osteoarthritic changes both hands VITALS/I&O VITALS/I&O: Vital Signs Date Time Temp Pulse Resp B/P (MAP) Pulse Ox O2 Delivery O2 Flow Rate FiO2 11/13/18 11:57 99 Room Air 11/13/18 10:56 98.1 87 18 178/96 (123) 98.1 I & O 11/12/18 11/12/18 11/13/18 15:00 23:00 07:00 Intake Total 300 ml Balance 300 ml LABS Lab: Laboratory Tests Test 11/12/18 22:15 11/13/18 02:50 11/13/18 06:30 White Blood Count 5.7 x10^3/uL (4.0-11.0) Red Blood Count 4.11 x10^6/uL (4.30-5.70) L Hemoglobin 11.3 g/dL (13.0-17.5) L Hematocrit 33.9 % (39.0-53.0) L Mean Corpuscular Volume 82 fL (79-100) Mean Corpuscular Hemoglobin 28 pg (25-35) Mean Corpuscular Hemoglobin Concent 33 g/dL (31-37) Red Cell Distribution Width 15.0 % (11.5-14.5) H Platelet Count 239 x10^3/uL (140-400) Neutrophils (%) (Auto) 60 % (31-73) Lymphocytes (%) (Auto) 28 % (24-48) Monocytes (%) (Auto) 10 % (0-9) H Eosinophils (%) (Auto) 2 % (0-3) Basophils (%) (Auto) 1 % (0-3) Neutrophils # (Auto) 3.5 x10^3/uL (1.8-7.7) Lymphocytes # (Auto) 1.6 x10^3/uL (1.0-4.8) Monocytes # (Auto) 0.6 x10^3/uL (0.0-1.1) Eosinophils # (Auto) 0.1 x10^3/uL (0.0-0.7) Basophils # (Auto) 0.0 x10^3/uL (0.0-0.2) Sodium Level 141 mmol/L (136-145) Potassium Level 3.5 mmol/L (3.5-5.1) Chloride Level 103 mmol/L (98-107) Carbon Dioxide Level 26 mmol/L (21-32) Anion Gap 12 (6-14) Blood Urea Nitrogen 18 mg/dL (8-26) Creatinine 1.4 mg/dL (0.7-1.3) H Estimated GFR (Cockcroft-Gault) 62.6 BUN/Creatinine Ratio 13 (6-20) Glucose Level 100 mg/dL (70-99) H Lactic Acid Level 0.6 mmol/L (0.4-2.0) Calcium Level 9.3 mg/dL (8.5-10.1) Magnesium Level 1.4 mg/dL (1.8-2.4) L 2.0 mg/dL (1.8-2.4) Total Bilirubin 0.3 mg/dL (0.2-1.0) Aspartate Amino Transferase (AST) 29 U/L (15-37) Alanine Aminotransferase (ALT) 56 U/L (16-63) Alkaline Phosphatase 92 U/L (46-116) Creatine Kinase 293 U/L (39-308) Creatine Kinase MB (Mass) 1.3 ng/mL (0.0-3.6) Creatine Kinase MB Relative Index 0.4 % (0-4) Troponin I Quantitative < 0.017 ng/mL (0.000-0.055) < 0.017 ng/mL (0.000-0.055) < 0.017 ng/mL (0.000-0.055) HH-Lfi-I-Type Natriuretic Peptide 185 pg/mL (0-124) H Total Protein 7.8 g/dL (6.4-8.2) Albumin 3.4 g/dL (3.4-5.0) Albumin/Globulin Ratio 0.8 (1.0-1.7) L Lipase 181 U/L (73-393) Triglycerides Level 38 mg/dL (0-150) Cholesterol Level 220 mg/dL (0-200) H LDL Cholesterol, Calculated 164 mg/dL (0-100) H VLDL Cholesterol, Calculated 8 mg/dL (0-40) Non-HDL Cholesterol Calculated 172 mg/dL (0-129) H HDL Cholesterol 48 mg/dL (40-60) Cholesterol/HDL Ratio 4.6 Laboratory Tests 11/12/18 22:15 Laboratory Tests 11/12/18 22:15 ECHOCARDIOGRAM ECHOCARDIOGRAM <Conclusion> The left ventricular systolic function is normal. The Ejection Fraction is 55-60%. There is normal LV segmental wall motion. Trace mitral regurgitation. Trace tricuspid regurgitation. The PA pressure was estimated at 51 mmHg. There is no evidence of significant pericardial effusion. DATE: 10/17/18 1640 ASSESSMENT/PLAN ASSESSMENT/PLAN 1. Malignant hypertension; remains elevated. 2. Chest pain, atypical. Most probably related to #1. Resolved with BP control 3. CKD 4. Hyperlipidemia 5. Hypomagnesemia Continue Norvasc, Imdur, and hydralazine. BB added. If BP remains uncontrolled, consider renal duplex to r/o GEOFFREY. No SAMSON/ARB due to h/o angioedema Consider outpatient ischemic evaluation Supportive care. ALICIA RASMUSSEN APRN Nov 13, 2018 13:28
[2018-11-13] MEDS: METOPROLOL TART IMMED RELEASE 25 MG TABLET. PO SCH ×2 (14:15→22:34)
--- NOTE | 2018-11-13 15:54 | NUR ---
SS following for discharge planning. SS reviewed pt chart. Pt is from home with spouse and is currently on room air. No discharge needs noted at this time. SS will continue to follow for discharge planning.
--- NOTE | 2018-11-13 16:01 | RAD ---
RENAL COMPLETE BILATERAL: 11/13/2018 1:28 PM Indication: 58 years old Male. Renal failure. Comparison: None. FINDINGS: Sonographic evaluation of kidneys is performed utilizing grayscale and color Doppler Right kidney: Size: 10.5 x 5.4 x 4.9cm. Collecting System: No hydronephrosis. No renal calculi detected. Parenchyma: Normal echotexture and morphology. No focal contour deforming renal mass. Left kidney: Size: 10.1 x 5.5 x 5.6cm. Collecting System: No hydronephrosis. No renal calculi detected. Parenchyma: Normal echotexture and morphology. No focal contour deforming renal mass. Urinary bladder: Bilateral urine jets are visualized. Urinary bladder is within normal limits given degree of distention. Resistive index, right: 0.73 Resistive index, left: 0.74 Proximal aorta measures 2.6 cm. Mid aorta measures 2.1 cm. Distal aorta measures 2.0 cm. IMPRESSION: No sonographic evidence for obstructive uropathy. Electronically signed by: Olivia Bruner MD (11/13/2018 3:58 PM) [id number]
[2018-11-13] MEDS: ENOXAPARIN 40 MG/0.4 ML SYRINGE. SQ SCH (17:12)
[2018-11-13] MEDS: ATORVASTATIN CALCIUM 40 MG TABLET. PO SCH (22:35)
[2018-11-14 01:05] LABS: BILIRUBIN,URINE NEGATIVE (NEG); CLARITY,URINE CLEAR; COLOR,URINE YELLOW; NITRITE,URINE NEGATIVE (NEG); PH,URINE 5.5; PROTEIN,URINE NEGATIVE (NEG-TRACE); UROBILINOGEN,URINE 0.2 mg/dL (0.2 mg/dL)
[2018-11-14 01:15] LABS: BACTERIA,URINE 0 /HPF (0-FEW); RBC,URINE OCC /HPF (0-2); SQUAMOUS EPITHELIAL CELL,UR OCC /LPF; WBC,URINE OCC /HPF (0-4)
[2018-11-14 03:07] VITALS: BP 165/90
[2018-11-14 04:37] LABS: ALBUMIN 3.1 g/dL (3.4-5.0); ALBUMIN/GLOBULIN RATIO 0.8 (1.0-1.7); CALCIUM 8.9 mg/dL (8.5-10.1); CREATININE 1.4 mg/dL (0.7-1.3); GFR 62.6; MAGNESIUM 1.7 mg/dL (1.8-2.4); POTASSIUM 3.6 mmol/L (3.5-5.1); TOTAL BILIRUBIN 0.3 mg/dL (0.2-1.0); TOTAL PROTEIN 7.2 g/dL (6.4-8.2)
[2018-11-14 05:52] LABS: BASO % 0 % (0-3); EOS % 1 % (0-3); LYMPH # 1.8 x10^3/uL (1.0-4.8); LYMPH % 29 % (24-48); MEAN CORPUSCULAR HEMOGLOBIN 28 pg (25-35); MEAN CORPUSCULAR HGB CONC 33 g/dL (31-37); MEAN CORPUSCULAR VOLUME 83 fL (79-100); MONO # 0.6 x10^3/uL (0.0-1.1); MONO % 9 % (0-9); NEUT % 62 % (31-73); PLATELET COUNT 243 x10^3/uL (140-400); RED CELL DISTRIBUTION WIDTH 14.8 % (11.5-14.5); WHITE BLOOD COUNT 6.4 x10^3/uL (4.0-11.0)
[2018-11-14 07:00] VITALS: BP 165/84
[2018-11-14] MEDS: INSULIN LISPRO 300 UNITS/3 ML VIAL. SQ SCH ×3 (08:00→17:00)
[2018-11-14] MEDS: ISOSORBIDE MONONITRATE ER 30 MG TAB.ER.24H PO SCH (08:42)
[2018-11-14] MEDS: amLODIPine BESYLATE 10 MG TABLET PO SCH (08:43)
[2018-11-14] MEDS: METOPROLOL TART IMMED RELEASE 25 MG TABLET. PO SCH ×2 (08:44→20:17)
[2018-11-14] MEDS: guaiFENesin DM 600/30MG 1 TAB TAB.ER.12H PO SCH ×2 (08:51→20:15)
[2018-11-14] MEDS ORDERED: guaiFENesin DM 600/30MG 1 TAB TAB.ER.12H PO ONE (09:30)
--- NOTE | 2018-11-14 10:26 | PDOC ---
PROGRESS NOTES History of Present Illness History of Present Illness IMPRESSION: No acute intracranial abnormality. Mucosal disease in ethmoid sinuses. Electronically signed by: Bianca Cotton MD (11/13/2018 1:18 AM) [facility] VTE Prophylaxis Ordered VTE Prophylaxis Devices: No VTE Pharmacological Prophylaxi: Yes Assessment/Plan Assessment/Plan Impression: Hypertensive urgency, POA, STILL SUOPTIMAL CONTROL ECHO 2018 Ejection Fraction is 55-60%.normal LV segmental wall motion. Trace mitral regurgitation. Trace tricuspid regurgitation. PA pressure was estimated at 51 mmHg. C/W PULM HTN Bronchitis, acute HX diabetes Hypomagnesemia, REPLACED 11/14 hx Angioedema secondary to lisinopril Dyslipidemia on statin and fish oil hx respiratory failure, secondary to SAMSON induced angioedema. 10/17/18 Chronic kidney disease. on ct head 11/12 No acute intracranial abnormality. Mucosal disease in ethmoid sinuses. ADMITTED cvc bed iv bp support cardiology FOLLOWING nephrology consult serial troponin i dvt prophylaxis accuchecks INC HYDRALAZINE TO 75 MG PO TID 27 MIN pt exam, chart review, > 50% of time spent with exam, chart review, pt care coordination Vitals Vitals Vital Signs Date Time Temp Pulse Resp B/P (MAP) Pulse Ox O2 Delivery O2 Flow Rate FiO2 11/14/18 08:51 69 165/84 11/14/18 08:00 Room Air 11/14/18 07:00 98.0 18 98 98.0 Physical Exam General: Alert, Oriented X3, Cooperative, No acute distress Heart: Regular rate, Normal S1 Lungs: Clear Abdomen: Normal bowel sounds, Soft, No tenderness Extremities: No cyanosis Skin: No breakdown Labs LABS CEDRICK: headache, HTN PROCEDURE: CT HEAD WO CONTRAST CT head without contrast: Reason for examination: Headaches. Hypertensive. Axial images were obtained through the brain. No contrast was administered. Exposure: One or more of the following individualized dose reduction techniques were utilized for this examination: 1. Automated exposure control 2. Adjustment of the mA and/or kV according to patient size 3. Use of iterative reconstruction technique. Ventricular systems are symmetric and not dilated. No midline shift is seen. There is no evidence of intracranial hemorrhage, infarct, mass or edema. No abnormalities are seen at the orbits. There is some mild mucosal disease in the ethmoid sinuses. Remaining paranasal sinuses are clear. Mastoid air cells are clear. No acute skull abnormality is seen. IMPRESSION: No acute intracranial abnormality. Mucosal disease in ethmoid sinuses. Electronically signed by: Bianca Cotton MD (11/13/2018 1:18 AM) [facility] DICTATED and SIGNED BY: BIANCA COTTON MD DATE: 11/13/18 0118 STATUS: ADM IN ORD. PHYSICIAN: CHRISTINE HARRIS MD REASON: RENAL FAILURE PROCEDURE: RENAL COMPLETE BILATERAL RENAL COMPLETE BILATERAL: 11/13/2018 1:28 PM Indication: 58 years old Male. Renal failure. Comparison: None. FINDINGS: Sonographic evaluation of kidneys is performed utilizing grayscale and color Doppler Right kidney: Size: 10.5 x 5.4 x 4.9cm. Collecting System: No hydronephrosis. No renal calculi detected. Parenchyma: Normal echotexture and morphology. No focal contour deforming renal mass. Left kidney: Size: 10.1 x 5.5 x 5.6cm. Collecting System: No hydronephrosis. No renal calculi detected. Parenchyma: Normal echotexture and morphology. No focal contour deforming renal mass. Urinary bladder: Bilateral urine jets are visualized. Urinary bladder is within normal limits given degree of distention. Resistive index, right: 0.73 Resistive index, left: 0.74 Proximal aorta measures 2.6 cm. Mid aorta measures 2.1 cm. Distal aorta measures 2.0 cm. IMPRESSION: No sonographic evidence for obstructive uropathy. Electronically signed by: Heri Ya MD (11/13/2018 3:58 PM) [facility] DICTATED and SIGNED BY: HERI YA MD DATE: 11/13/18 1558 Laboratory Tests Test 11/13/18 21:56 11/14/18 00:30 11/14/18 03:30 11/14/18 07:34 Glucose (Fingerstick) 117 mg/dL (70-99) 94 mg/dL (70-99) Urine Collection Type Unknown Urine Color Yellow Urine Clarity Clear Urine pH 5.5 Urine Specific Star <=1.005 Urine Protein Negative mg/dL (NEG-TRACE) Urine Glucose (UA) Negative mg/dL (NEG) Urine Ketones (Stick) Negative mg/dL (NEG) Urine Blood Negative (NEG) Urine Nitrite Negative (NEG) Urine Bilirubin Negative (NEG) Urine Urobilinogen Dipstick 0.2 mg/dL (0.2 mg/dL) Urine Leukocyte Esterase Negative (NEG) Urine RBC Occ /HPF (0-2) Urine WBC Occ /HPF (0-4) Urine Squamous Epithelial Cells Occ /LPF Urine Bacteria 0 /HPF (0-FEW) White Blood Count 6.4 x10^3/uL (4.0-11.0) Red Blood Count 4.00 x10^6/uL (4.30-5.70) Hemoglobin 11.0 g/dL (13.0-17.5) Hematocrit 33.0 % (39.0-53.0) Mean Corpuscular Volume 83 fL (79-100) Mean Corpuscular Hemoglobin 28 pg (25-35) Mean Corpuscular Hemoglobin Concent 33 g/dL (31-37) Red Cell Distribution Width 14.8 % (11.5-14.5) Platelet Count 243 x10^3/uL (140-400) Neutrophils (%) (Auto) 62 % (31-73) Lymphocytes (%) (Auto) 29 % (24-48) Monocytes (%) (Auto) 9 % (0-9) Eosinophils (%) (Auto) 1 % (0-3) Basophils (%) (Auto) 0 % (0-3) Neutrophils # (Auto) 4.0 x10^3/uL (1.8-7.7) Lymphocytes # (Auto) 1.8 x10^3/uL (1.0-4.8) Monocytes # (Auto) 0.6 x10^3/uL (0.0-1.1) Eosinophils # (Auto) 0.0 x10^3/uL (0.0-0.7) Basophils # (Auto) 0.0 x10^3/uL (0.0-0.2) Sodium Level 140 mmol/L (136-145) Potassium Level 3.6 mmol/L (3.5-5.1) Chloride Level 105 mmol/L (98-107) Carbon Dioxide Level 25 mmol/L (21-32) Anion Gap 10 (6-14) Blood Urea Nitrogen 20 mg/dL (8-26) Creatinine 1.4 mg/dL (0.7-1.3) Estimated GFR (Cockcroft-Gault) 62.6 BUN/Creatinine Ratio 14 (6-20) Glucose Level 101 mg/dL (70-99) Calcium Level 8.9 mg/dL (8.5-10.1) Magnesium Level 1.7 mg/dL (1.8-2.4) Total Bilirubin 0.3 mg/dL (0.2-1.0) Aspartate Amino Transf (AST/SGOT) 20 U/L (15-37) Alanine Aminotransferase (ALT/SGPT) 45 U/L (16-63) Alkaline Phosphatase 83 U/L (46-116) Total Protein 7.2 g/dL (6.4-8.2) Albumin 3.1 g/dL (3.4-5.0) Albumin/Globulin Ratio 0.8 (1.0-1.7) Assessment and Plan Assessmemt and Plan Problems Medical Problems: (1) Bronchitis Status: Acute (2) CKD (chronic kidney disease) Status: Chronic (3) Dyslipidemia Status: Chronic (4) Hypertensive urgency Status: Acute (5) Hypomagnesemia Status: Acute Comment Review of Relevant I have reviewed the following items jim (where applicable) has been applied. Labs Laboratory Tests Test 11/12/18 22:15 11/13/18 02:50 11/13/18 06:30 11/13/18 21:56 White Blood Count 5.7 x10^3/uL (4.0-11.0) Red Blood Count 4.11 x10^6/uL (4.30-5.70) Hemoglobin 11.3 g/dL (13.0-17.5) Hematocrit 33.9 % (39.0-53.0) Mean Corpuscular Volume 82 fL (79-100) Mean Corpuscular Hemoglobin 28 pg (25-35) Mean Corpuscular Hemoglobin Concent 33 g/dL (31-37) Red Cell Distribution Width 15.0 % (11.5-14.5) Platelet Count 239 x10^3/uL (140-400) Neutrophils (%) (Auto) 60 % (31-73) Lymphocytes (%) (Auto) 28 % (24-48) Monocytes (%) (Auto) 10 % (0-9) Eosinophils (%) (Auto) 2 % (0-3) Basophils (%) (Auto) 1 % (0-3) Neutrophils # (Auto) 3.5 x10^3/uL (1.8-7.7) Lymphocytes # (Auto) 1.6 x10^3/uL (1.0-4.8) Monocytes # (Auto) 0.6 x10^3/uL (0.0-1.1) Eosinophils # (Auto) 0.1 x10^3/uL (0.0-0.7) Basophils # (Auto) 0.0 x10^3/uL (0.0-0.2) Sodium Level 141 mmol/L (136-145) Potassium Level 3.5 mmol/L (3.5-5.1) Chloride Level 103 mmol/L (98-107) Carbon Dioxide Level 26 mmol/L (21-32) Anion Gap 12 (6-14) Blood Urea Nitrogen 18 mg/dL (8-26) Creatinine 1.4 mg/dL (0.7-1.3) Estimated GFR (Cockcroft-Gault) 62.6 BUN/Creatinine Ratio 13 (6-20) Glucose Level 100 mg/dL (70-99) Lactic Acid Level 0.6 mmol/L (0.4-2.0) Calcium Level 9.3 mg/dL (8.5-10.1) Magnesium Level 1.4 mg/dL (1.8-2.4) 2.0 mg/dL (1.8-2.4) Total Bilirubin 0.3 mg/dL (0.2-1.0) Aspartate Amino Transf (AST/SGOT) 29 U/L (15-37) Alanine Aminotransferase (ALT/SGPT) 56 U/L (16-63) Alkaline Phosphatase 92 U/L (46-116) Creatine Kinase 293 U/L (39-308) Creatine Kinase MB (Mass) 1.3 ng/mL (0.0-3.6) Creatine Kinase MB Relative Index 0.4 % (0-4) Troponin I Quantitative < 0.017 ng/mL (0.000-0.055) < 0.017 ng/mL (0.000-0.055) < 0.017 ng/mL (0.000-0.055) [id number]-Type Natriuretic Peptide 185 pg/mL (0-124) Total Protein 7.8 g/dL (6.4-8.2) Albumin 3.4 g/dL (3.4-5.0) Albumin/Globulin Ratio 0.8 (1.0-1.7) Lipase 181 U/L (73-393) Triglycerides Level 38 mg/dL (0-150) Cholesterol Level 220 mg/dL (0-200) LDL Cholesterol, Calculated 164 mg/dL (0-100) VLDL Cholesterol, Calculated 8 mg/dL (0-40) Non-HDL Cholesterol Calculated 172 mg/dL (0-129) HDL Cholesterol 48 mg/dL (40-60) Cholesterol/HDL Ratio 4.6 Glucose (Fingerstick) 117 mg/dL (70-99) Test 11/14/18 00:30 11/14/18 03:30 11/14/18 07:34 Urine Collection Type Unknown Urine Color Yellow Urine Clarity Clear Urine pH 5.5 Urine Specific Star <=1.005 Urine Protein Negative mg/dL (NEG-TRACE) Urine Glucose (UA) Negative mg/dL (NEG) Urine Ketones (Stick) Negative mg/dL (NEG) Urine Blood Negative (NEG) Urine Nitrite Negative (NEG) Urine Bilirubin Negative (NEG) Urine Urobilinogen Dipstick 0.2 mg/dL (0.2 mg/dL) Urine Leukocyte Esterase Negative (NEG) Urine RBC Occ /HPF (0-2) Urine WBC Occ /HPF (0-4) Urine Squamous Epithelial Cells Occ /LPF Urine Bacteria 0 /HPF (0-FEW) White Blood Count 6.4 x10^3/uL (4.0-11.0) Red Blood Count 4.00 x10^6/uL (4.30-5.70) Hemoglobin 11.0 g/dL (13.0-17.5) Hematocrit 33.0 % (39.0-53.0) Mean Corpuscular Volume 83 fL (79-100) Mean Corpuscular Hemoglobin 28 pg (25-35) Mean Corpuscular Hemoglobin Concent 33 g/dL (31-37) Red Cell Distribution Width 14.8 % (11.5-14.5) Platelet Count 243 x10^3/uL (140-400) Neutrophils (%) (Auto) 62 % (31-73) Lymphocytes (%) (Auto) 29 % (24-48) Monocytes (%) (Auto) 9 % (0-9) Eosinophils (%) (Auto) 1 % (0-3) Basophils (%) (Auto) 0 % (0-3) Neutrophils # (Auto) 4.0 x10^3/uL (1.8-7.7) Lymphocytes # (Auto) 1.8 x10^3/uL (1.0-4.8) Monocytes # (Auto) 0.6 x10^3/uL (0.0-1.1) Eosinophils # (Auto) 0.0 x10^3/uL (0.0-0.7) Basophils # (Auto) 0.0 x10^3/uL (0.0-0.2) Sodium Level 140 mmol/L (136-145) Potassium Level 3.6 mmol/L (3.5-5.1) Chloride Level 105 mmol/L (98-107) Carbon Dioxide Level 25 mmol/L (21-32) Anion Gap 10 (6-14) Blood Urea Nitrogen 20 mg/dL (8-26) Creatinine 1.4 mg/dL (0.7-1.3) Estimated GFR (Cockcroft-Gault) 62.6 BUN/Creatinine Ratio 14 (6-20) Glucose Level 101 mg/dL (70-99) Calcium Level 8.9 mg/dL (8.5-10.1) Magnesium Level 1.7 mg/dL (1.8-2.4) Total Bilirubin 0.3 mg/dL (0.2-1.0) Aspartate Amino Transf (AST/SGOT) 20 U/L (15-37) Alanine Aminotransferase (ALT/SGPT) 45 U/L (16-63) Alkaline Phosphatase 83 U/L (46-116) Total Protein 7.2 g/dL (6.4-8.2) Albumin 3.1 g/dL (3.4-5.0) Albumin/Globulin Ratio 0.8 (1.0-1.7) Glucose (Fingerstick) 94 mg/dL (70-99) Laboratory Tests Test 11/13/18 21:56 11/14/18 00:30 11/14/18 03:30 11/14/18 07:34 Glucose (Fingerstick) 117 mg/dL (70-99) 94 mg/dL (70-99) Urine Collection Type Unknown Urine Color Yellow Urine Clarity Clear Urine pH 5.5 Urine Specific Star <=1.005 Urine Protein Negative mg/dL (NEG-TRACE) Urine Glucose (UA) Negative mg/dL (NEG) Urine Ketones (Stick) Negative mg/dL (NEG) Urine Blood Negative (NEG) Urine Nitrite Negative (NEG) Urine Bilirubin Negative (NEG) Urine Urobilinogen Dipstick 0.2 mg/dL (0.2 mg/dL) Urine Leukocyte Esterase Negative (NEG) Urine RBC Occ /HPF (0-2) Urine WBC Occ /HPF (0-4) Urine Squamous Epithelial Cells Occ /LPF Urine Bacteria 0 /HPF (0-FEW) White Blood Count 6.4 x10^3/uL (4.0-11.0) Red Blood Count 4.00 x10^6/uL (4.30-5.70) Hemoglobin 11.0 g/dL (13.0-17.5) Hematocrit 33.0 % (39.0-53.0) Mean Corpuscular Volume 83 fL (79-100) Mean Corpuscular Hemoglobin 28 pg (25-35) Mean Corpuscular Hemoglobin Concent 33 g/dL (31-37) Red Cell Distribution Width 14.8 % (11.5-14.5) Platelet Count 243 x10^3/uL (140-400) Neutrophils (%) (Auto) 62 % (31-73) Lymphocytes (%) (Auto) 29 % (24-48) Monocytes (%) (Auto) 9 % (0-9) Eosinophils (%) (Auto) 1 % (0-3) Basophils (%) (Auto) 0 % (0-3) Neutrophils # (Auto) 4.0 x10^3/uL (1.8-7.7) Lymphocytes # (Auto) 1.8 x10^3/uL (1.0-4.8) Monocytes # (Auto) 0.6 x10^3/uL (0.0-1.1) Eosinophils # (Auto) 0.0 x10^3/uL (0.0-0.7) Basophils # (Auto) 0.0 x10^3/uL (0.0-0.2) Sodium Level 140 mmol/L (136-145) Potassium Level 3.6 mmol/L (3.5-5.1) Chloride Level 105 mmol/L (98-107) Carbon Dioxide Level 25 mmol/L (21-32) Anion Gap 10 (6-14) Blood Urea Nitrogen 20 mg/dL (8-26) Creatinine 1.4 mg/dL (0.7-1.3) Estimated GFR (Cockcroft-Gault) 62.6 BUN/Creatinine Ratio 14 (6-20) Glucose Level 101 mg/dL (70-99) Calcium Level 8.9 mg/dL (8.5-10.1) Magnesium Level 1.7 mg/dL (1.8-2.4) Total Bilirubin 0.3 mg/dL (0.2-1.0) Aspartate Amino Transf (AST/SGOT) 20 U/L (15-37) Alanine Aminotransferase (ALT/SGPT) 45 U/L (16-63) Alkaline Phosphatase 83 U/L (46-116) Total Protein 7.2 g/dL (6.4-8.2) Albumin 3.1 g/dL (3.4-5.0) Albumin/Globulin Ratio 0.8 (1.0-1.7) Medications Current Medications Aspirin ([place] Aspirin) 325 mg 1X ONCE PO Last administered on 11/12/18 22:57; Start 11/12/18 at 22:45; Stop 11/12/18 at 22:46; Status DC Dexamethasone Sodium Phosphate (Decadron) 10 mg 1X ONCE IV Last administered on 11/12/18 22:57; Start 11/12/18 at 22:45; Stop 11/12/18 at 22:46; Status DC Albuterol/ Ipratropium (Duoneb) 3 ml 1X ONCE NEB Last administered on 11/12/18at 22:59; Start 11/12/18 at 22:45; Stop 11/12/18 at 22:46; Status DC Labetalol HCl (Normodyne Iv Push) 20 mg 1X ONCE IVP Last administered on 11/12/18 22:57; Start 11/12/18 at 22:45; Stop 11/12/18 at 22:46; Status DC Hydralazine HCl (Apresoline Inj) 20 mg 1X ONCE IVP Last administered on 11/13/18at 00:55; Start 11/12/18 at 23:55; Stop 11/12/18 at 23:56; Status DC Clonidine HCl (Catapres) 0.1 mg 1X ONCE PO Last administered on 11/13/18at 00:35; Start 11/12/18 at 23:55; Stop 11/12/18 at 23:56; Status DC Ketorolac Tromethamine (Toradol 15mg Vial) 15 mg 1X ONCE IV Last administered on 11/13/18at 00:35; Start 11/12/18 at 23:55; Stop 11/12/18 at 23:56; Status DC Ondansetron HCl (Zofran) 4 mg PRN Q8HRS PRN IV NAUSEA/VOMITING; Start 11/13/18 at 00:00; Stop 11/13/18 at 23:59; Status DC Acetaminophen (Tylenol) 650 mg PRN Q4HRS PRN PO FEVER; Start 11/13/18 at 00:00; Stop 11/13/18 at 23:59; Status DC Albuterol/ Ipratropium (Duoneb) 3 ml RTQID NEB Last administered on 11/13/18at 19:36; Start 11/13/18 at 08:00; Stop 11/14/18 at 07:59; Status DC Hydralazine HCl (Apresoline Inj) 10 mg PRN Q4HRS PRN IVP ELEVATED BP, SEE COMMENTS; Start 11/13/18 at 00:00 Insulin Human Lispro (HumaLOG) 0-5 UNITS TIDWMEALS SQ ; Start 11/13/18 at 08:00; Stop 11/13/18 at 08:40; Status DC Dextrose (Dextrose 50%-Water Syringe) 12.5 gm PRN Q15MIN PRN IV SEE COMMENTS; Start 11/13/18 at 00:00 Dextrose 250 ml PRN Q15MIN PRN IV SEE COMMENTS; Start 11/13/18 at 00:00 Magnesium Sulfate 50 ml @ 25 mls/hr 1X ONCE IV Last administered on 11/13/18at 00:52; Start 11/13/18 at 00:45; Stop 11/13/18 at 02:44; Status DC Magnesium Sulfate 50 ml @ As Directed STK-MED ONCE IV ; Start 11/13/18 at 00:30; Stop 11/13/18 at 00:32; Status DC Amlodipine Besylate (Norvasc) 10 mg DAILY PO Last administered on 11/14/18at 08:51; Start 11/13/18 at 09:00 Atorvastatin Calcium (Lipitor) 80 mg QHS PO Last administered on 11/13/18at 22:35; Start 11/13/18 at 21:00 Hydralazine HCl (Apresoline) 50 mg TID PO Last administered on 11/14/18at 08:51; Start 11/13/18 at 09:00 Isosorbide Mononitrate (Imdur) 90 mg DAILY PO Last administered on 11/14/18at 08:51; Start 11/13/18 at 09:00 Insulin Human Lispro (HumaLOG) 0-9 UNITS TIDWMEALS SQ ; Start 11/13/18 at 12:00 Dextrose (Dextrose 50%-Water Syringe) 12.5 gm PRN Q15MIN PRN IV SEE COMMENTS; Start 11/13/18 at 08:45; Status UNV Dextrose 250 ml PRN Q15MIN PRN IV SEE COMMENTS; Start 11/13/18 at 08:45; Status UNV Enoxaparin Sodium (Lovenox 40mg Syringe) 40 mg Q24H SQ Last administered on 11/13/18at 17:12; Start 11/13/18 at 16:00 Guaifenesin (MUCINEX ER with DM) 2 tab BID PO Last administered on 11/14/18at 08:51; Start 11/13/18 at 12:30 Metoprolol Tartrate (Lopressor) 25 mg BID PO Last administered on 11/14/18at 08:51; Start 11/13/18 at 14:00 Guaifenesin (MUCINEX ER with DM) 2 tab 1X ONCE PO ; Start 11/14/18 at 09:30; Stop 11/14/18 at 09:31; Status DC Active Scripts Active Atorvastatin Calcium 40 Mg Tablet 80 Mg PO QHS Isosorbide Mononitrate Er (Isosorbide Mononitrate) 30 Mg Tab.er.24h 90 Mg PO DAILY Amlodipine Besylate 10 Mg Tablet 10 Mg PO DAILY Hydralazine Hcl 50 Mg Tablet 50 Mg PO TID Vitals/I & O Vital Sign - Last 24 Hours 11/13/18 11/13/18 11/13/18 11/13/18 10:29 10:29 10:29 10:56 Temp 98.1 98.1 Pulse 79 79 79 87 Resp 18 B/P (MAP) 154/88 154/88 154/88 178/96 (123) Pulse Ox 95 O2 Delivery Room Air 11/13/18 11/13/18 11/13/18 11/13/18 11:57 14:16 14:16 14:57 Temp 97.7 97.7 Pulse 87 87 96 Resp 18 B/P (MAP) 178/96 178/96 122/70 (87) Pulse Ox 99 79 O2 Delivery Room Air Room Air 11/13/18 11/13/18 11/13/18 11/13/18 16:29 19:00 19:37 20:01 Temp 97.3 97.3 Pulse 91 Resp 16 B/P (MAP) 146/79 (101) Pulse Ox 91 98 O2 Delivery Room Air Room Air Room Air Room Air 11/13/18 11/13/18 11/13/18 11/14/18 22:35 22:35 23:00 03:07 Temp 98.4 98.0 98.4 98.0 Pulse 91 91 78 81 Resp 20 20 B/P (MAP) 146/79 146/79 157/86 (109) 165/90 (115) Pulse Ox 96 95 O2 Delivery Room Air Room Air 11/14/18 11/14/18 11/14/18 11/14/18 07:00 08:00 08:51 08:51 Temp 98.0 98.0 Pulse 69 69 69 Resp 18 B/P (MAP) 165/84 (111) 165/84 165/84 Pulse Ox 98 O2 Delivery Room Air Room Air 11/14/18 11/14/18 08:51 08:51 Pulse 69 69 B/P (MAP) 165/84 165/84 Intake and Output 11/13/18 11/13/18 11/14/18 15:00 23:00 07:00 Intake Total 800 ml 1400 ml Output Total 550 ml 2 ml Balance -550 ml 800 ml 1398 ml SAMMY DAVE MD Nov 14, 2018 10:26
[2018-11-14 11:00] VITALS: BP 144/87
--- NOTE | 2018-11-14 11:53 | PDOC ---
Renal-Progress Notes Subjective Notes Notes NONE History of Present Illness Hx of present illness STABLE Vitals Vitals Vital Signs Date Time Temp Pulse Resp B/P (MAP) Pulse Ox O2 Delivery O2 Flow Rate FiO2 11/14/18 11:00 97.8 74 18 144/87 (106) 98 Room Air 97.8 Weight Weight [ ] I.O. Intake and Output Intake and Output 11/14/18 07:00 Intake Total 2200 ml Output Total 552 ml Balance 1648 ml Intake Oral 2200 ml Output Urine Total 552 ml Labs Labs Laboratory Tests Test 11/13/18 21:56 11/14/18 00:30 11/14/18 03:30 11/14/18 07:34 Glucose (Fingerstick) 117 mg/dL (70-99) 94 mg/dL (70-99) Urine Collection Type Unknown Urine Color Yellow Urine Clarity Clear Urine pH 5.5 Urine Specific [place] <=1.005 Urine Protein Negative mg/dL (NEG-TRACE) Urine Glucose (UA) Negative mg/dL (NEG) Urine Ketones (Stick) Negative mg/dL (NEG) Urine Blood Negative (NEG) Urine Nitrite Negative (NEG) Urine Bilirubin Negative (NEG) Urine Urobilinogen Dipstick 0.2 mg/dL (0.2 mg/dL) Urine Leukocyte Esterase Negative (NEG) Urine RBC Occ /HPF (0-2) Urine WBC Occ /HPF (0-4) Urine Squamous Epithelial Cells Occ /LPF Urine Bacteria 0 /HPF (0-FEW) White Blood Count 6.4 x10^3/uL (4.0-11.0) Red Blood Count 4.00 x10^6/uL (4.30-5.70) Hemoglobin 11.0 g/dL (13.0-17.5) Hematocrit 33.0 % (39.0-53.0) Mean Corpuscular Volume 83 fL (79-100) Mean Corpuscular Hemoglobin 28 pg (25-35) Mean Corpuscular Hemoglobin Concent 33 g/dL (31-37) Red Cell Distribution Width 14.8 % (11.5-14.5) Platelet Count 243 x10^3/uL (140-400) Neutrophils (%) (Auto) 62 % (31-73) Lymphocytes (%) (Auto) 29 % (24-48) Monocytes (%) (Auto) 9 % (0-9) Eosinophils (%) (Auto) 1 % (0-3) Basophils (%) (Auto) 0 % (0-3) Neutrophils # (Auto) 4.0 x10^3/uL (1.8-7.7) Lymphocytes # (Auto) 1.8 x10^3/uL (1.0-4.8) Monocytes # (Auto) 0.6 x10^3/uL (0.0-1.1) Eosinophils # (Auto) 0.0 x10^3/uL (0.0-0.7) Basophils # (Auto) 0.0 x10^3/uL (0.0-0.2) Sodium Level 140 mmol/L (136-145) Potassium Level 3.6 mmol/L (3.5-5.1) Chloride Level 105 mmol/L (98-107) Carbon Dioxide Level 25 mmol/L (21-32) Anion Gap 10 (6-14) Blood Urea Nitrogen 20 mg/dL (8-26) Creatinine 1.4 mg/dL (0.7-1.3) Estimated GFR (Cockcroft-Gault) 62.6 BUN/Creatinine Ratio 14 (6-20) Glucose Level 101 mg/dL (70-99) Calcium Level 8.9 mg/dL (8.5-10.1) Magnesium Level 1.7 mg/dL (1.8-2.4) Total Bilirubin 0.3 mg/dL (0.2-1.0) Aspartate Amino Transf (AST/SGOT) 20 U/L (15-37) Alanine Aminotransferase (ALT/SGPT) 45 U/L (16-63) Alkaline Phosphatase 83 U/L (46-116) Total Protein 7.2 g/dL (6.4-8.2) Albumin 3.1 g/dL (3.4-5.0) Albumin/Globulin Ratio 0.8 (1.0-1.7) Review of Systems Constitutional: yes: weakness, alert, oriented Ears/Nose/Throat: Yes: no symptom reported Eyes: Yes: no symptom reported Pulmonary: Yes no symptom reported Cardiovascular: Yes no symptom reported Gastrointestional: Yes: no symptom reported Genitourinary: Yes: no symptom reported Musculoskeletal: Yes: no symptom reported Skin: Yes no symptom reported Psychiatric/Neurological: Yes: headache Endocrine: Yes: no symptom reported Physical Exam General Appearance: no apparent distress Skin: warm Respiratory: decreased breath sounds Heart: S1S2 Abdomen: soft, bowel sounds present Genitourinary: bladder flat Extremities: pulses present Neurology: alert Musculoskeletal: Osteoarthritis Assessment Assessment IMP MALIGNANT HTN AND URGENCY-BETTER HEADACHE DUE TO ABOVE HYPOMAGNESEMIA-BETTER CKD STAGE 2-MOST LIKELY DUE TO HTN HX OF SHAUNA LAST MONTH-FROM RELATIVE HYPOTENSION-RESOLVED 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
[2018-11-14] MEDS ORDERED: MAGNESIUM SULFATE 2GM 50 ML IV ONE (12:00)
[2018-11-14 15:00] VITALS: BP 127/78
[2018-11-14] MEDS: ENOXAPARIN 40 MG/0.4 ML SYRINGE. SQ SCH (18:09)
[2018-11-14 19:50] VITALS: BP 159/77
[2018-11-14] MEDS: ATORVASTATIN CALCIUM 40 MG TABLET. PO SCH (20:15)
[2018-11-14] MEDS: hydrALAZINE 25 MG TABLET PO SCH (20:16)
[2018-11-14 22:50] VITALS: BP 128/77
[2018-11-15 03:40] VITALS: BP 155/85
[2018-11-15 03:51] LABS: CALCIUM 8.9 mg/dL (8.5-10.1); CREATININE 1.6 mg/dL (0.7-1.3); GFR 53.6; MAGNESIUM 1.8 mg/dL (1.8-2.4); POTASSIUM 4.2 mmol/L (3.5-5.1)
[2018-11-15 07:43] VITALS: BP 143/90
[2018-11-15] MEDS: INSULIN LISPRO 300 UNITS/3 ML VIAL. SQ SCH ×2 (08:00→12:00)
[2018-11-15] MEDS: ISOSORBIDE MONONITRATE ER 30 MG TAB.ER.24H PO SCH (08:59)
[2018-11-15] MEDS: guaiFENesin DM 600/30MG 1 TAB TAB.ER.12H PO SCH (09:00)
[2018-11-15] MEDS: METOPROLOL TART IMMED RELEASE 25 MG TABLET. PO SCH (09:00)
[2018-11-15] MEDS: amLODIPine BESYLATE 10 MG TABLET PO SCH (09:00)
[2018-11-15] MEDS: hydrALAZINE 25 MG TABLET PO SCH ×2 (09:00→15:16)
[2018-11-15 11:11] VITALS: BP 151/94
--- NOTE | 2018-11-15 11:39 | PDOC ---
PROGRESS NOTES History of Present Illness History of Present Illness IMPRESSION: No acute intracranial abnormality. Mucosal disease in ethmoid sinuses. Electronically signed by: Bianca Moscoso MD (11/13/2018 1:18 AM) [facility] [place] Prophylaxis Ordered VTE Prophylaxis Devices: No VTE Pharmacological Prophylaxi: Yes Assessment/Plan Assessment/Plan Impression: Hypertensive urgency, POA, improved ECHO 2018 Ejection Fraction is 55-60%.normal LV segmental wall motion. Trace mitral regurgitation. Trace tricuspid regurgitation. PA pressure was estimated at 51 mmHg. C/W PULM HTN Bronchitis, acute HX diabetes Hypomagnesemia, REPLACED 11/14 hx Angioedema secondary to lisinopril Dyslipidemia on statin and fish oil hx respiratory failure, secondary to SAMSON induced angioedema. 10/17/18 Chronic kidney disease. on ct head 11/12 No acute intracranial abnormality. Mucosal disease in ethmoid sinuses. ADMITTED cvc bed iv bp support cardiology FOLLOWING nephrology consult serial troponin i dvt prophylaxis accuchecks INC HYDRALAZINE TO 75 MG PO TID 31 MIN pt exam, chart review, d/c planning > 50% of time spent with exam, chart review, pt care coordination Vitals Vitals Vital Signs Date Time Temp Pulse Resp B/P (MAP) Pulse Ox O2 Delivery O2 Flow Rate FiO2 11/15/18 11:11 97.5 72 18 151/94 (113) 97 Room Air 97.5 Physical Exam General: Alert, Oriented X3, Cooperative, No acute distress Heart: Regular rate, Normal S1 Lungs: Clear Abdomen: Normal bowel sounds, Soft, No tenderness Extremities: No cyanosis Skin: No breakdown Labs LABS Laboratory Tests Test 11/14/18 11:57 11/14/18 16:57 11/14/18 20:26 11/15/18 03:05 Glucose (Fingerstick) 91 mg/dL (70-99) 121 mg/dL (70-99) 97 mg/dL (70-99) Sodium Level 141 mmol/L (136-145) Potassium Level 4.2 mmol/L (3.5-5.1) Chloride Level 106 mmol/L (98-107) Carbon Dioxide Level 25 mmol/L (21-32) Anion Gap 10 (6-14) Blood Urea Nitrogen 20 mg/dL (8-26) Creatinine 1.6 mg/dL (0.7-1.3) Estimated GFR (Cockcroft-Gault) 53.6 Glucose Level 91 mg/dL (70-99) Calcium Level 8.9 mg/dL (8.5-10.1) Magnesium Level 1.8 mg/dL (1.8-2.4) Test 11/15/18 07:32 Glucose (Fingerstick) 87 mg/dL (70-99) Assessment and Plan Assessmemt and Plan Problems Medical Problems: (1) Bronchitis Status: Acute (2) CKD (chronic kidney disease) Status: Chronic (3) Dyslipidemia Status: Chronic (4) Hypertensive urgency Status: Acute (5) Hypomagnesemia Status: Acute Comment Review of Relevant I have reviewed the following items jim (where applicable) has been applied. Labs Laboratory Tests Test 11/13/18 21:56 11/14/18 00:30 11/14/18 03:30 11/14/18 07:34 Glucose (Fingerstick) 117 mg/dL (70-99) 94 mg/dL (70-99) Urine Collection Type Unknown Urine Color Yellow Urine Clarity Clear Urine pH 5.5 Urine Specific [place] <=1.005 Urine Protein Negative mg/dL (NEG-TRACE) Urine Glucose (UA) Negative mg/dL (NEG) Urine Ketones (Stick) Negative mg/dL (NEG) Urine Blood Negative (NEG) Urine Nitrite Negative (NEG) Urine Bilirubin Negative (NEG) Urine Urobilinogen Dipstick 0.2 mg/dL (0.2 mg/dL) Urine Leukocyte Esterase Negative (NEG) Urine RBC Occ /HPF (0-2) Urine WBC Occ /HPF (0-4) Urine Squamous Epithelial Cells Occ /LPF Urine Bacteria 0 /HPF (0-FEW) White Blood Count 6.4 x10^3/uL (4.0-11.0) Red Blood Count 4.00 x10^6/uL (4.30-5.70) Hemoglobin 11.0 g/dL (13.0-17.5) Hematocrit 33.0 % (39.0-53.0) Mean Corpuscular Volume 83 fL (79-100) Mean Corpuscular Hemoglobin 28 pg (25-35) Mean Corpuscular Hemoglobin Concent 33 g/dL (31-37) Red Cell Distribution Width 14.8 % (11.5-14.5) Platelet Count 243 x10^3/uL (140-400) Neutrophils (%) (Auto) 62 % (31-73) Lymphocytes (%) (Auto) 29 % (24-48) Monocytes (%) (Auto) 9 % (0-9) Eosinophils (%) (Auto) 1 % (0-3) Basophils (%) (Auto) 0 % (0-3) Neutrophils # (Auto) 4.0 x10^3/uL (1.8-7.7) Lymphocytes # (Auto) 1.8 x10^3/uL (1.0-4.8) Monocytes # (Auto) 0.6 x10^3/uL (0.0-1.1) Eosinophils # (Auto) 0.0 x10^3/uL (0.0-0.7) Basophils # (Auto) 0.0 x10^3/uL (0.0-0.2) Sodium Level 140 mmol/L (136-145) Potassium Level 3.6 mmol/L (3.5-5.1) Chloride Level 105 mmol/L (98-107) Carbon Dioxide Level 25 mmol/L (21-32) Anion Gap 10 (6-14) Blood Urea Nitrogen 20 mg/dL (8-26) Creatinine 1.4 mg/dL (0.7-1.3) Estimated GFR (Cockcroft-Gault) 62.6 BUN/Creatinine Ratio 14 (6-20) Glucose Level 101 mg/dL (70-99) Calcium Level 8.9 mg/dL (8.5-10.1) Magnesium Level 1.7 mg/dL (1.8-2.4) Total Bilirubin 0.3 mg/dL (0.2-1.0) Aspartate Amino Transf (AST/SGOT) 20 U/L (15-37) Alanine Aminotransferase (ALT/SGPT) 45 U/L (16-63) Alkaline Phosphatase 83 U/L (46-116) Total Protein 7.2 g/dL (6.4-8.2) Albumin 3.1 g/dL (3.4-5.0) Albumin/Globulin Ratio 0.8 (1.0-1.7) Test 11/14/18 11:57 11/14/18 16:57 11/14/18 20:26 11/15/18 03:05 Glucose (Fingerstick) 91 mg/dL (70-99) 121 mg/dL (70-99) 97 mg/dL (70-99) Sodium Level 141 mmol/L (136-145) Potassium Level 4.2 mmol/L (3.5-5.1) Chloride Level 106 mmol/L (98-107) Carbon Dioxide Level 25 mmol/L (21-32) Anion Gap 10 (6-14) Blood Urea Nitrogen 20 mg/dL (8-26) Creatinine 1.6 mg/dL (0.7-1.3) Estimated GFR (Cockcroft-Gault) 53.6 Glucose Level 91 mg/dL (70-99) Calcium Level 8.9 mg/dL (8.5-10.1) Magnesium Level 1.8 mg/dL (1.8-2.4) Test 11/15/18 07:32 Glucose (Fingerstick) 87 mg/dL (70-99) Laboratory Tests Test 11/14/18 11:57 11/14/18 16:57 11/14/18 20:26 11/15/18 03:05 Glucose (Fingerstick) 91 mg/dL (70-99) 121 mg/dL (70-99) 97 mg/dL (70-99) Sodium Level 141 mmol/L (136-145) Potassium Level 4.2 mmol/L (3.5-5.1) Chloride Level 106 mmol/L (98-107) Carbon Dioxide Level 25 mmol/L (21-32) Anion Gap 10 (6-14) Blood Urea Nitrogen 20 mg/dL (8-26) Creatinine 1.6 mg/dL (0.7-1.3) Estimated GFR (Cockcroft-Gault) 53.6 Glucose Level 91 mg/dL (70-99) Calcium Level 8.9 mg/dL (8.5-10.1) Magnesium Level 1.8 mg/dL (1.8-2.4) Test 11/15/18 07:32 Glucose (Fingerstick) 87 mg/dL (70-99) Medications Current Medications Aspirin (Milagros Aspirin) 325 mg 1X ONCE PO Last administered on 11/12/18at 22:57; Start 11/12/18 at 22:45; Stop 11/12/18 at 22:46; Status DC Dexamethasone Sodium Phosphate (Decadron) 10 mg 1X ONCE IV Last administered on 11/12/18at 22:57; Start 11/12/18 at 22:45; Stop 11/12/18 at 22:46; Status DC Albuterol/ Ipratropium (Duoneb) 3 ml 1X ONCE NEB Last administered on 11/12/18a t 22:59; Start 11/12/18 at 22:45; Stop 11/12/18 at 22:46; Status DC Labetalol HCl (Normodyne Iv Push) 20 mg 1X ONCE IVP Last administered on 11/12/18at 22:57; Start 11/12/18 at 22:45; Stop 11/12/18 at 22:46; Status DC Hydralazine HCl (Apresoline Inj) 20 mg 1X ONCE IVP Last administered on 11/13/18at 00:55; Start 11/12/18 at 23:55; Stop 11/12/18 at 23:56; Status DC Clonidine HCl (Catapres) 0.1 mg 1X ONCE PO Last administered on 11/13/18at 00:35; Start 11/12/18 at 23:55; Stop 11/12/18 at 23:56; Status DC Ketorolac Tromethamine (Toradol 15mg Vial) 15 mg 1X ONCE IV Last administered on 11/13/18at 00:35; Start 11/12/18 at 23:55; Stop 11/12/18 at 23:56; Status DC Ondansetron HCl (Zofran) 4 mg PRN Q8HRS PRN IV NAUSEA/VOMITING; Start 11/13/18 at 00:00; Stop 11/13/18 at 23:59; Status DC Acetaminophen (Tylenol) 650 mg PRN Q4HRS PRN PO FEVER; Start 11/13/18 at 00:00; Stop 11/13/18 at 23:59; Status DC Albuterol/ Ipratropium (Duoneb) 3 ml RTQID NEB Last administered on 11/13/18at 19:36; Start 11/13/18 at 08:00; Stop 11/14/18 at 07:59; Status DC Hydralazine HCl (Apresoline Inj) 10 mg PRN Q4HRS PRN IVP ELEVATED BP, SEE COMMENTS; Start 11/13/18 at 00:00 Insulin Human Lispro (HumaLOG) 0-5 UNITS TIDWMEALS SQ ; Start 11/13/18 at 08:00; Stop 11/13/18 at 08:40; Status DC Dextrose (Dextrose 50%-Water Syringe) 12.5 gm PRN Q15MIN PRN IV SEE COMMENTS; Start 11/13/18 at 00:00 Dextrose 250 ml PRN Q15MIN PRN IV SEE COMMENTS; Start 11/13/18 at 00:00 Magnesium Sulfate 50 ml @ 25 mls/hr 1X ONCE IV Last administered on 11/13/18at 00:52; Start 11/13/18 at 00:45; Stop 11/13/18 at 02:44; Status DC Magnesium Sulfate 50 ml @ As Directed STK-MED ONCE IV ; Start 11/13/18 at 00:30; Stop 11/13/18 at 00:32; Status DC Amlodipine Besylate (Norvasc) 10 mg DAILY PO Last administered on 11/15/18at 09:00; Start 11/13/18 at 09:00 Atorvastatin Calcium (Lipitor) 80 mg QHS PO Last administered on 11/14/18at 20:17; Start 11/13/18 at 21:00 Hydralazine HCl (Apresoline) 50 mg TID PO Last administered on 11/14/18at 14:26; Start 11/13/18 at 09:00; Stop 11/14/18 at 17:37; Status DC Isosorbide Mononitrate (Imdur) 90 mg DAILY PO Last administered on 11/15/18at 09:00; Start 11/13/18 at 09:00 Insulin Human Lispro (HumaLOG) 0-9 UNITS TIDWMEALS SQ ; Start 11/13/18 at 12:00 Dextrose (Dextrose 50%-Water Syringe) 12.5 gm PRN Q15MIN PRN IV SEE COMMENTS; Start 11/13/18 at 08:45; Status UNV Dextrose 250 ml PRN Q15MIN PRN IV SEE COMMENTS; Start 11/13/18 at 08:45; Status UNV Enoxaparin Sodium (Lovenox 40mg Syringe) 40 mg Q24H SQ Last administered on 11/14/18at 18:12; Start 11/13/18 at 16:00 Guaifenesin (MUCINEX ER with DM) 2 tab BID PO Last administered on 11/15/18at 09:00; Start 11/13/18 at 12:30 Metoprolol Tartrate (Lopressor) 25 mg BID PO Last administered on 11/15/18at 09:00; Start 11/13/18 at 14:00 Guaifenesin (MUCINEX ER with DM) 2 tab 1X ONCE PO ; Start 11/14/18 at 09:30; Stop 11/14/18 at 09:31; Status DC Magnesium Sulfate 50 ml @ 25 mls/hr 1X ONCE IV Last administered on 11/14/18at 13:01; Start 11/14/18 at 12:00; Stop 11/14/18 at 13:59; Status DC Hydralazine HCl (Apresoline) 575 mg TID PO ; Start 11/14/18 at 17:45; Stop 11/14/18 at 17:48; Status DC Hydralazine HCl (Apresoline) 75 mg TID PO Last administered on 11/15/18at 09:00; Start 11/14/18 at 21:00 Active Scripts Active Atorvastatin Calcium 40 Mg Tablet 80 Mg PO QHS Isosorbide Mononitrate Er (Isosorbide Mononitrate) 30 Mg Tab.er.24h 90 Mg PO DAILY Amlodipine Besylate 10 Mg Tablet 10 Mg PO DAILY Hydralazine Hcl 50 Mg Tablet 50 Mg PO TID Vitals/I & O Vital Sign - Last 24 Hours 11/14/18 11/14/18 11/14/18 11/14/18 14:26 15:00 19:49 19:50 Temp 98.1 97.8 98.1 97.8 Pulse 77 76 76 Resp 18 18 B/P (MAP) 127/78 127/78 (94) 159/77 (104) Pulse Ox 97 95 O2 Delivery Room Air Room Air Room Air 11/14/18 11/14/18 11/14/18 11/15/18 20:17 20:17 22:50 03:40 Temp 98.1 97.7 98.1 97.7 Pulse 77 77 67 64 Resp 18 18 B/P (MAP) 159/77 159/77 128/77 (94) 155/85 (108) Pulse Ox 98 97 O2 Delivery Room Air Room Air 11/15/18 11/15/18 11/15/18 11/15/18 07:43 08:00 09:00 09:00 Temp 97.4 97.4 Pulse 71 71 71 Resp 18 B/P (MAP) 143/90 (107) 143/90 143/90 Pulse Ox 98 O2 Delivery Room Air Room Air 11/15/18 11/15/18 11/15/18 09:00 09:00 11:11 Temp 97.5 97.5 Pulse 71 71 72 Resp 18 B/P (MAP) 143/90 143/90 151/94 (113) Pulse Ox 97 O2 Delivery Room Air Intake and Output 11/14/18 11/14/18 11/15/18 14:59 22:59 06:59 Intake Total 600 ml 300 ml 700 ml Balance 600 ml 300 ml 700 ml SAMMY DAVE MD Nov 15, 2018 11:39
--- NOTE | 2018-11-15 13:48 | PDOC ---
Renal-Progress Notes Subjective Notes Notes NO MORE ST History of Present Illness Hx of present illness BETTER Vitals Vitals Vital Signs Date Time Temp Pulse Resp B/P (MAP) Pulse Ox O2 Delivery O2 Flow Rate FiO2 11/15/18 11:11 97.5 72 18 151/94 (113) 97 Room Air 97.5 Weight Weight [ ] I.O. Intake and Output Intake and Output 11/15/18 07:00 Intake Total 1600 ml Balance 1600 ml Intake Oral 1600 ml # Voids 3 Labs Labs Laboratory Tests Test 11/14/18 16:57 11/14/18 20:26 11/15/18 03:05 11/15/18 07:32 Glucose (Fingerstick) 121 mg/dL (70-99) 97 mg/dL (70-99) 87 mg/dL (70-99) Sodium Level 141 mmol/L (136-145) Potassium Level 4.2 mmol/L (3.5-5.1) Chloride Level 106 mmol/L (98-107) Carbon Dioxide Level 25 mmol/L (21-32) Anion Gap 10 (6-14) Blood Urea Nitrogen 20 mg/dL (8-26) Creatinine 1.6 mg/dL (0.7-1.3) Estimated GFR (Cockcroft-Gault) 53.6 Glucose Level 91 mg/dL (70-99) Calcium Level 8.9 mg/dL (8.5-10.1) Magnesium Level 1.8 mg/dL (1.8-2.4) Test 11/15/18 11:31 Glucose (Fingerstick) 130 mg/dL (70-99) Review of Systems Constitutional: yes: weakness, alert, oriented Ears/Nose/Throat: Yes: no symptom reported Eyes: Yes: no symptom reported Pulmonary: Yes no symptom reported Cardiovascular: Yes no symptom reported Gastrointestional: Yes: no symptom reported Genitourinary: Yes: no symptom reported Musculoskeletal: Yes: no symptom reported Skin: Yes no symptom reported Psychiatric/Neurological: Yes: headache Endocrine: Yes: no symptom reported Physical Exam General Appearance: no apparent distress Skin: warm Respiratory: decreased breath sounds Heart: S1S2 Abdomen: soft, bowel sounds present Genitourinary: bladder flat Extremities: pulses present Neurology: alert Musculoskeletal: Osteoarthritis Assessment Assessment IMP MALIGNANT HTN AND URGENCY-BETTER HEADACHE DUE TO ABOVE HYPOMAGNESEMIA-CORRECTED CKD STAGE 2-MOST LIKELY DUE TO HTN-CR OF 1.6 HX OF SHAUNA LAST MONTH-FROM RELATIVE HYPOTENSION-RESOLVED HX OF ANGIOEDEMA FROM LISINOPRIL PLAN RENAL SONOGRAM WNL AVOID SAMSON-I ARB CONT CURRENT BP MEDS WILL HAVE HIM F/U IN OFFICE OK TO D/C FROM RENAL STANDPOINT CHRISTINE HARRIS MD Nov 15, 2018 13:48
[2018-11-15 14:39] VITALS: BP 110/71
[2018-11-15 15:16] VITALS: BP 110/71
[2018-11-15] MEDS: ENOXAPARIN 40 MG/0.4 ML SYRINGE. SQ SCH (16:00)
--- NOTE | 2018-11-15 16:11 | PDOC3 ---
Discharge Summary Date of Admission: Nov 12, 2018 Date of Discharge: Nov 15, 2018 Follow-Up: 3-5 days Admitting Diagnosis comment: dischareg dx Assessment/Plan Impression: Hypertensive urgency, POA, improved ECHO 2018 Ejection Fraction is 55-60%.normal LV segmental wall motion. Trace mitral regurgitation. Trace tricuspid regurgitation. PA pressure was estimated at 51 mmHg. C/W PULM HTN Bronchitis, acute HX diabetes Hypomagnesemia, REPLACED 11/14 hx Angioedema secondary to lisinopril Dyslipidemia on statin and fish oil hx respiratory failure, secondary to SAMSON induced angioedema. 10/17/18 Chronic kidney disease. on ct head 11/12 No acute intracranial abnormality. Mucosal disease in ethmoid sinuses. ADMITTED cvc bed iv bp support cardiology FOLLOWING nephrology consult serial troponin i dvt prophylaxis accuchecks INC HYDRALAZINE TO 75 MG PO TID 31 MIN pt exam, chart review, d/c planning > 50% of time spent with exam, chart review, pt care coordination Vitals Vitals Vital Signs Date Time Temp Pulse Resp B/P (MAP) Pulse Ox O2 Delivery O2 Flow Rate FiO2 11/15/18 11:11 97.5 72 18 151/94 (113) 97 Room Air 97.5 Physical Exam General: Alert, Oriented X3, Cooperative, No acute distress Heart: Regular rate, Normal S1 Lungs: Clear Abdomen: Normal bowel sounds, Soft, No tenderness Extremities: No cyanosis Skin: No breakdown FINAL DIAGNOSIS Problems Medical Problems: (1) Bronchitis Status: Acute (2) CKD (chronic kidney disease) Status: Chronic (3) Dyslipidemia Status: Chronic (4) Hypertensive urgency Status: Acute (5) Hypomagnesemia Status: Acute Brief Hospital Course Mr. Mahmood is a 58 old [sex] who presented with [hypertension urgency ] CONDITION AT DISCHARGE: Improved Discharge Medications Current Medications Aspirin (Milagros Aspirin) 325 mg 1X ONCE PO Last administered on 11/12/18at 22:57; Start 11/12/18 at 22:45; Stop 11/12/18 at 22:46; Status DC Dexamethasone Sodium Phosphate (Decadron) 10 mg 1X ONCE IV Last administered on 11/12/18at 22:57; Start 11/12/18 at 22:45; Stop 11/12/18 at 22:46; Status DC Albuterol/ Ipratropium (Duoneb) 3 ml 1X ONCE NEB Last administered on 11/12/18at 22:59; Start 11/12/18 at 22:45; Stop 11/12/18 at 22:46; Status DC Labetalol HCl (Normodyne Iv Push) 20 mg 1X ONCE IVP Last administered on 11/12/18at 22:57; Start 11/12/18 at 22:45; Stop 11/12/18 at 22:46; Status DC Hydralazine HCl (Apresoline Inj) 20 mg 1X ONCE IVP Last administered on 11/13/18at 00:55; Start 11/12/18 at 23:55; Stop 11/12/18 at 23:56; Status DC Clonidine HCl (Catapres) 0.1 mg 1X ONCE PO Last administered on 11/13/18at 00:35; Start 11/12/18 at 23:55; Stop 11/12/18 at 23:56; Status DC Ketorolac Tromethamine (Toradol 15mg Vial) 15 mg 1X ONCE IV Last administered on 11/13/18at 00:35; Start 11/12/18 at 23:55; Stop 11/12/18 at 23:56; Status DC Ondansetron HCl (Zofran) 4 mg PRN Q8HRS PRN IV NAUSEA/VOMITING; Start 11/13/18 at 00:00; Stop 11/13/18 at 23:59; Status DC Acetaminophen (Tylenol) 650 mg PRN Q4HRS PRN PO FEVER; Start 11/13/18 at 00:00; Stop 11/13/18 at 23:59; Status DC Albuterol/ Ipratropium (Duoneb) 3 ml RTQID NEB Last administered on 11/13/18at 19:36; Start 11/13/18 at 08:00; Stop 11/14/18 at 07:59; Status DC Hydralazine HCl (Apresoline Inj) 10 mg PRN Q4HRS PRN IVP ELEVATED BP, SEE COMMENTS; Start 11/13/18 at 00:00 Insulin Human Lispro (HumaLOG) 0-5 UNITS TIDWMEALS SQ ; Start 11/13/18 at 08:00; Stop 11/13/18 at 08:40; Status DC Dextrose (Dextrose 50%-Water Syringe) 12.5 gm PRN Q15MIN PRN IV SEE COMMENTS; Start 11/13/18 at 00:00 Dextrose 250 ml PRN Q15MIN PRN IV SEE COMMENTS; Start 11/13/18 at 00:00 Magnesium Sulfate 50 ml @ 25 mls/hr 1X ONCE IV Last administered on 11/13/18at 00:52; Start 11/13/18 at 00:45; Stop 11/13/18 at 02:44; Status DC Magnesium Sulfate 50 ml @ As Directed STK-MED ONCE IV ; Start 11/13/18 at 00:30; Stop 11/13/18 at 00:32; Status DC Amlodipine Besylate (Norvasc) 10 mg DAILY PO Last administered on 11/15/18at 09:00; Start 11/13/18 at 09:00 Atorvastatin Calcium (Lipitor) 80 mg QHS PO Last administered on 11/14/18at 20:17; Start 11/13/18 at 21:00 Hydralazine HCl (Apresoline) 50 mg TID PO Last administered on 11/14/18at 14:26; Start 11/13/18 at 09:00; Stop 11/14/18 at 17:37; Status DC Isosorbide Mononitrate (Imdur) 90 mg DAILY PO Last administered on 11/15/18at 09:00; Start 11/13/18 at 09:00 Insulin Human Lispro (HumaLOG) 0-9 UNITS TIDWMEALS SQ ; Start 11/13/18 at 12:00 Dextrose (Dextrose 50%-Water Syringe) 12.5 gm PRN Q15MIN PRN IV SEE COMMENTS; Start 11/13/18 at 08:45; Status UNV Dextrose 250 ml PRN Q15MIN PRN IV SEE COMMENTS; Start 11/13/18 at 08:45; Status UNV Enoxaparin Sodium (Lovenox 40mg Syringe) 40 mg Q24H SQ Last administered on 11/14/18at 18:12; Start 11/13/18 at 16:00 Guaifenesin (MUCINEX ER with DM) 2 tab BID PO Last administered on 11/15/18at 09:00; Start 11/13/18 at 12:30 Metoprolol Tartrate (Lopressor) 25 mg BID PO Last administered on 11/15/18at 09:00; Start 11/13/18 at 14:00 Guaifenesin (MUCINEX ER with DM) 2 tab 1X ONCE PO ; Start 11/14/18 at 09:30; Stop 11/14/18 at 09:31; Status DC Magnesium Sulfate 50 ml @ 25 mls/hr 1X ONCE IV Last administered on 11/14/18at 13:01; Start 11/14/18 at 12:00; Stop 11/14/18 at 13:59; Status DC Hydralazine HCl (Apresoline) 575 mg TID PO ; Start 11/14/18 at 17:45; Stop 11/14/18 at 17:48; Status DC Hydralazine HCl (Apresoline) 75 mg TID PO Last administered on 11/15/18at 15:16; Start 11/14/18 at 21:00 Active Scripts Active Atorvastatin Calcium 40 Mg Tablet 80 Mg PO QHS Isosorbide Mononitrate Er (Isosorbide Mononitrate) 30 Mg Tab.er.24h 90 Mg PO DAILY Amlodipine Besylate 10 Mg Tablet 10 Mg PO DAILY Hydralazine Hcl 50 Mg Tablet 50 Mg PO TID Vital Signs Vital Signs Date Time Temp Pulse Resp B/P (MAP) Pulse Ox O2 Delivery O2 Flow Rate FiO2 11/15/18 15:16 74 110/71 11/15/18 14:39 98.1 18 97 Room Air 98.1 Labs Laboratory Tests Test 11/13/18 21:56 11/14/18 00:30 11/14/18 03:30 11/14/18 07:34 Glucose (Fingerstick) 117 mg/dL (70-99) 94 mg/dL (70-99) Urine Collection Type Unknown Urine Color Yellow Urine Clarity Clear Urine pH 5.5 Urine Specific [place] <=1.005 Urine Protein Negative mg/dL (NEG-TRACE) Urine Glucose (UA) Negative mg/dL (NEG) Urine Ketones (Stick) Negative mg/dL (NEG) Urine Blood Negative (NEG) Urine Nitrite Negative (NEG) Urine Bilirubin Negative (NEG) Urine Urobilinogen Dipstick 0.2 mg/dL (0.2 mg/dL) Urine Leukocyte Esterase Negative (NEG) Urine RBC Occ /HPF (0-2) Urine WBC Occ /HPF (0-4) Urine Squamous Epithelial Cells Occ /LPF Urine Bacteria 0 /HPF (0-FEW) White Blood Count 6.4 x10^3/uL (4.0-11.0) Red Blood Count 4.00 x10^6/uL (4.30-5.70) Hemoglobin 11.0 g/dL (13.0-17.5) Hematocrit 33.0 % (39.0-53.0) Mean Corpuscular Volume 83 fL (79-100) Mean Corpuscular Hemoglobin 28 pg (25-35) Mean Corpuscular Hemoglobin Concent 33 g/dL (31-37) Red Cell Distribution Width 14.8 % (11.5-14.5) Platelet Count 243 x10^3/uL (140-400) Neutrophils (%) (Auto) 62 % (31-73) Lymphocytes (%) (Auto) 29 % (24-48) Monocytes (%) (Auto) 9 % (0-9) Eosinophils (%) (Auto) 1 % (0-3) Basophils (%) (Auto) 0 % (0-3) Neutrophils # (Auto) 4.0 x10^3/uL (1.8-7.7) Lymphocytes # (Auto) 1.8 x10^3/uL (1.0-4.8) Monocytes # (Auto) 0.6 x10^3/uL (0.0-1.1) Eosinophils # (Auto) 0.0 x10^3/uL (0.0-0.7) Basophils # (Auto) 0.0 x10^3/uL (0.0-0.2) Sodium Level 140 mmol/L (136-145) Potassium Level 3.6 mmol/L (3.5-5.1) Chloride Level 105 mmol/L (98-107) Carbon Dioxide Level 25 mmol/L (21-32) Anion Gap 10 (6-14) Blood Urea Nitrogen 20 mg/dL (8-26) Creatinine 1.4 mg/dL (0.7-1.3) Estimated GFR (Cockcroft-Gault) 62.6 BUN/Creatinine Ratio 14 (6-20) Glucose Level 101 mg/dL (70-99) Calcium Level 8.9 mg/dL (8.5-10.1) Magnesium Level 1.7 mg/dL (1.8-2.4) Total Bilirubin 0.3 mg/dL (0.2-1.0) Aspartate Amino Transf (AST/SGOT) 20 U/L (15-37) Alanine Aminotransferase (ALT/SGPT) 45 U/L (16-63) Alkaline Phosphatase 83 U/L (46-116) Total Protein 7.2 g/dL (6.4-8.2) Albumin 3.1 g/dL (3.4-5.0) Albumin/Globulin Ratio 0.8 (1.0-1.7) Test 11/14/18 11:57 11/14/18 16:57 11/14/18 20:26 11/15/18 03:05 Glucose (Fingerstick) 91 mg/dL (70-99) 121 mg/dL (70-99) 97 mg/dL (70-99) Sodium Level 141 mmol/L (136-145) Potassium Level 4.2 mmol/L (3.5-5.1) Chloride Level 106 mmol/L (98-107) Carbon Dioxide Level 25 mmol/L (21-32) Anion Gap 10 (6-14) Blood Urea Nitrogen 20 mg/dL (8-26) Creatinine 1.6 mg/dL (0.7-1.3) Estimated GFR (Cockcroft-Gault) 53.6 Glucose Level 91 mg/dL (70-99) Calcium Level 8.9 mg/dL (8.5-10.1) Magnesium Level 1.8 mg/dL (1.8-2.4) Test 11/15/18 07:32 11/15/18 11:31 Glucose (Fingerstick) 87 mg/dL (70-99) 130 mg/dL (70-99) Laboratory Tests Test 11/14/18 16:57 11/14/18 20:26 11/15/18 03:05 11/15/18 07:32 Glucose (Fingerstick) 121 mg/dL (70-99) 97 mg/dL (70-99) 87 mg/dL (70-99) Sodium Level 141 mmol/L (136-145) Potassium Level 4.2 mmol/L (3.5-5.1) Chloride Level 106 mmol/L (98-107) Carbon Dioxide Level 25 mmol/L (21-32) Anion Gap 10 (6-14) Blood Urea Nitrogen 20 mg/dL (8-26) Creatinine 1.6 mg/dL (0.7-1.3) Estimated GFR (Cockcroft-Gault) 53.6 Glucose Level 91 mg/dL (70-99) Calcium Level 8.9 mg/dL (8.5-10.1) Magnesium Level 1.8 mg/dL (1.8-2.4) Test 11/15/18 11:31 Glucose (Fingerstick) 130 mg/dL (70-99) Allergies Allergies Coded Allergies Type Severity Reaction Last Updated Verified lisinopril Allergy Severe 10/14/18 Yes Penicillins Allergy Intermediate 10/18/18 Yes Disposition/Orders: D/C to Home Patient Instructions d/c planning 31 min SAMMY DAVE MD Nov 15, 2018 16:11
[2018-11-15] MEDS ORDERED: HYDR-2868 PO (16:14)
[2018-11-15] MEDS ORDERED: METO25TA4 PO (16:14)
--- NOTE | 2018-11-15 16:16 | DISCH ---
DISCHARGE INSTRUCTIONS Condition on Discharge Condition on Discharge: Stable Activity After Discharge Activity Instructions for Disc: Activity as tolerated Lifting Instructions after Dis: No heavy lifting, No pulling or pushing Exercise Instruction after Dis: Walk 10 min, 3 x per day, Progress as tolerated Driving Instructions after Dis: Do not drive today Weight Bearing Status after Di: As tolerated Diet after Discharge Diet after Discharge: Cardiac Checks after Discharge Checks after discharge: Check blood press - daily Contacting the DR. after DC Call your doctor for: If your condition worsens Warfarin Follow-Up Warfarin Follow UP: see pcp next ryan, nephrology 1 month SAMMY DAVE MD Nov 15, 2018 16:16
--- NOTE | 2018-11-15 17:10 | NUR ---
Discharge Note: ELENI IRENE Discharge instructions and discharge home medications reviewed with Patient and a copy given. All questions have been answered and understanding verbalized. Prescriptions for Hydralazine and metoprolol given to patient. The following instructions and handouts were given: hypertension, hydralazine, and metoprolol Discontinued lines and drains: Peripheral IV intact. Patient discharged to Home or Self Care with Spouse via Ambulated
== END 2018-11-15 17:00 | disposition home or self-care (01) | DRG 305 ==
LOC: ER 20:11 → 2 SOUTH 23:45
PROVIDERS: ADMIT Internal Medicine; ATTEND Internal Medicine
DX: I16.0 Hypertensive urgency (principal); E83.42 Hypomagnesemia; D64.9 Anemia, unspecified; J20.9 Acute bronchitis, unspecified; E11.22 Type 2 diabetes mellitus with diabetic chronic kidney disease; E78.5 Hyperlipidemia, unspecified; E78.00 Pure hypercholesterolemia, unspecified; F17.210 Nicotine dependence, cigarettes, uncomplicated; I12.9 Hypertensive chronic kidney disease with stage 1 through stage 4 chronic kidney disease, or unspecified chronic kidney disease; I27.20 Pulmonary hypertension, unspecified; E66.9 Obesity, unspecified; M19.90 Unspecified osteoarthritis, unspecified site; N18.2 Chronic kidney disease, stage 2 (mild); Z82.49 Family history of ischemic heart disease and other diseases of the circulatory system; Z88.8 Allergy status to other drugs, medicaments and biological substances; Z90.49 Acquired absence of other specified parts of digestive tract; Z96.653 Presence of artificial knee joint, bilateral; Z68.31 Body mass index [BMI] 31.0-31.9, adult; Z88.0 Allergy status to penicillin
CPT/HCPCS: 36415; 70450; 71046; 76770; 80048; 80053; 80061; 81001; 82553; 82962; 83605; 83690; 83735; 83880; 84484; 85025; 93005; 94640; J0360; J1100; J1650; J1815; J1885; J3475; J3490; J7620; G0378

== ENCOUNTER 2019-03-06 15:09 | Emergency (ER) | payer OTHER, MEDICAID ==
[~2019-03-06] VITALS: Ht 177.8 cm; Wt 98.9 kg
[~2019-03-06 15:09] MED LIST changes: +HYDR-2868 PO; +METO25TA4 PO
[2019-03-06 15:49] VITALS: BP 116/57
[2019-03-06] MEDS ORDERED: ORPH100T PO (16:09)
[2019-03-06] MEDS ORDERED: HYDR-3164 PO (16:09)
--- NOTE | 2019-03-06 16:09 | PHYS DOC ---
Past Medical History Past Medical History: High Cholesterol, Hypertension Additional Past Medical Histor: BORDERLINE DM Past Surgical History: Appendectomy Additional Past Surgical Histo: BILATERAL KNE REPLACEMENTS, INGUINAL HERNIA Alcohol Use: None Drug Use: None Adult General Chief Complaint Chief Complaint: HIP PAIN HPI HPI Patient is a 58 year old male who presents with left lower back pain is radiating down his left leg. This been ongoing for 3 days. He rates his pain as 10 out of 10 in severity and sharp. States never had this before. Denies any other symptoms. Review of Systems Review of Systems Constitutional: Denies fever or chills [] Eyes: Denies change in visual acuity, redness, or eye pain [] HENT: Denies nasal congestion or sore throat [] Respiratory: Denies cough or shortness of breath [] Cardiovascular: No additional information not addressed in HPI [] GI: Denies abdominal pain, nausea, vomiting, bloody stools or diarrhea [] : Denies dysuria or hematuria [] Musculoskeletal: Reports lower back pain radiating down left leg. Integument: Denies rash or skin lesions [] Neurologic: Denies headache, focal weakness or sensory changes [] Endocrine: Denies polyuria or polydipsia [] Complete systems were reviewed and found to be within normal limits, except as documented in this note. Current Medications Current Medications Current Medications Medications (Trade) Dose Ordered Sig/Austyn Start Time Stop Time Status Last Admin Dose Admin Ketorolac Tromethamine (Toradol) 10 mg 1X ONCE 03/06/19 16:15 03/06/19 16:16 Orphenadrine Citrate (Norflex) 60 mg 1X ONCE 03/06/19 16:15 03/06/19 16:16 Allergies Allergies Allergies Coded Allergies Type Severity Reaction Last Updated Verified lisinopril Allergy Severe 10/14/18 Yes Penicillins Allergy Intermediate 10/18/18 Yes Physical Exam Physical Exam Constitutional: Well developed, well nourished, no acute distress, non-toxic appearance. [] HENT: Normocephalic, atraumatic, bilateral external ears normal, oropharynx moist, no oral exudates, nose normal. [] Eyes: PERRLA, EOMI, conjunctiva normal, no discharge. [] Neck: Normal range of motion, no tenderness, supple, no stridor. [] ] Skin: Warm, dry, no erythema, no rash. [] Back: Lower back tenderness to palpation, no CVA tenderness. [] Extremities: No tenderness, no cyanosis, no clubbing, ROM intact, no edema. [] Neurologic: Alert and oriented X 3, normal motor function, normal sensory function, no focal deficits noted. [] Psychologic: Affect normal, judgement normal, mood normal. [] Current Patient Data Vital Signs Vital Signs Date Time Temp Pulse Resp B/P (MAP) Pulse Ox O2 Delivery O2 Flow Rate FiO2 03/06/19 15:49 98.3 89 16 116/57 (76) 97 Room Air 98.3 EKG EKG [] Radiology/Procedures Radiology/Procedures [] Course & Med Decision Making Course & Med Decision Making Pertinent Labs and Imaging studies reviewed. (See chart for details) The patient appears to be having sciatica. Will give him Toradol and Norflex in ER. Dragon Disclaimer Dragon Disclaimer This electronic medical record was generated, in whole or in part, using a voice recognition dictation system. Departure Departure Impression: Primary Impression: Sciatica Disposition: 01 HOME, SELF-CARE Condition: STABLE Referrals: MATTEO HERNANDEZ MD (PCP) Patient Instructions: Sciatica Additional Instructions: Thank you for visiting [facility]. We appreciate you trusting us with your care. If any additional problems come up don't hesitate to return to visit us. Please follow up with your primary care provider so they can plan additional care if needed and know about the problem that you had. If symptoms worsen come back to the Emergency Department. Any concerning symptoms that start such as chest pain, shortness of air, weakness or numbness on one side of the body, running high fevers or any other concerning symptoms return to the ER. Please fill your medications at any pharmacy and follow the prescription instructions. Scripts Hydrocodone/Apap 5-325 (NORCO 5-325 TABLET) 1 Each Tablet 1 TAB PO PRN Q6HRS PRN for PAIN for 3 Days, #10 TAB 0 Refills Prov: AYDEN FRANCOIS APRN 03/06/19 Orphenadrine Citrate (ORPHENADRINE CITRATE) 100 Mg Tablet.er 100 MG PO BID PRN for MUSCLE PAIN for 5 Days, #10 TAB.SR Prov: AYDEN FRANCOIS APRN 03/06/19 Problem Qualifiers Primary Impression: Sciatica Laterality: left Qualified Codes: M54.32 - Sciatica, left side AYDEN FRANCOIS APRN Mar 06, 2019 16:09
[2019-03-06] MEDS ORDERED: KETOROLAC TROMETHAMINE 10 MG TABLET PO ONE (16:15)
[2019-03-06] MEDS ORDERED: ORPHENADRINE CITRATE 60 MG/2 ML VIAL. IM ONE (16:15)
== END 2019-03-06 16:30 | disposition home or self-care (01) ==
LOC: ER 15:09
DX: M54.42 Lumbago with sciatica, left side (principal); E78.00 Pure hypercholesterolemia, unspecified; I10 Essential (primary) hypertension; Z90.49 Acquired absence of other specified parts of digestive tract; Z88.0 Allergy status to penicillin; Z88.8 Allergy status to other drugs, medicaments and biological substances
CPT/HCPCS: 96372; 99283; J2360

== ENCOUNTER 2020-03-20 09:39 | Emergency (ER) | payer OTHER, MEDICAID ==
[~2020-03-20] VITALS: Ht 177.8 cm; Wt 104.5 kg
[~2020-03-20 09:39] MED LIST changes: +AMLO-187 PO; -AMLO10TA8 PO; +HYDR-3164 PO; +ORPH100T PO
--- NOTE | 2020-03-20 10:21 | ED.ADGEN ---
Past Medical History Past Medical History: High Cholesterol, Hypertension Additional Past Medical Histor: BORDERLINE DM Past Surgical History: Appendectomy Additional Past Surgical Histo: BILATERAL KNE REPLACEMENTS, INGUINAL HERNIA Smoking Status: Former Smoker Alcohol Use: None Drug Use: None General Adult EDM: Chief Complaint: CHEST PAIN HPI: HPI: Patient is a 60-year-old male who presents to the emergency room complaining of 5 days of shortness of breath. Patient states that initially he thought it was just because of his weight but then it progressively got worse over time. This morning he was woken up with chest pains. He gets these sharp or lower chest pains that do not last very long. He has been having right-sided chest tightness. Pain is not worse with breathing or movement. He has never had anything like this before. He denies any cough, runny nose, sore throat, fevers, chills, sweats. He had coronavirus about a year ago. Review of Systems: Review of Systems: Complete ROS is negative unless otherwise documented in HPI Current Medications: Current Medications Medications (Trade) Dose Ordered Sig/Austyn Start Time Stop Time Status Last Admin Dose Admin Dexamethasone Sodium Phosphate (Decadron) 10 mg 1X ONCE 03/20/20 12:15 03/20/20 12:16 DC 03/20/20 12:30 10 MG Iohexol (Omnipaque 350 Mg/ml) 85 ml 1X ONCE 03/20/20 11:00 03/20/20 11:01 DC 03/20/20 11:02 85 ML Allergies: Allergies: Allergies Coded Allergies Type Severity Reaction Last Updated Verified lisinopril Allergy Severe 10/14/18 Yes Penicillins Allergy Intermediate 10/18/18 Yes Physical Exam: PE: General: Awake, alert, NAD. Well Nourished, well hydrated. Cooperative HEENT: Atraumatic, EOMI, PERRL, airway patent, moist oral mucosa Neck: Supple, trachea midline Respiratory: CTA bilaterally, normal effort, no wheezing/crackles CV: RRR, no murmur, cap refill <2 GI: Soft, nondistended, nontender, no masses MSK: No obvious deformities Skin: Warm, dry, intact Neuro: A&O x3, speech NL, sensory and motor grossly intact, no focal deficits Psych: Normal affect, normal mood, not suicidal or homicidal Current Patient Data: Labs: Laboratory Tests Test 03/20/20 09:53 03/20/20 12:08 White Blood Count 6.2 x10^3/uL (4.0-11.0) Red Blood Count 4.60 x10^6/uL (4.30-5.70) Hemoglobin 12.7 g/dL (13.0-17.5) L Hematocrit 38.2 % (39.0-53.0) L Mean Corpuscular Volume 83 fL (79-100) Mean Corpuscular Hemoglobin 28 pg (25-35) Mean Corpuscular Hemoglobin Concent 33 g/dL (31-37) Red Cell Distribution Width 14.3 % (11.5-14.5) Platelet Count 198 x10^3/uL (140-400) Neutrophils (%) (Auto) 72 % (31-73) Lymphocytes (%) (Auto) 20 % (24-48) L Monocytes (%) (Auto) 6 % (0-9) Eosinophils (%) (Auto) 1 % (0-3) Basophils (%) (Auto) 1 % (0-3) Neutrophils # (Auto) 4.5 x10^3/uL (1.8-7.7) Lymphocytes # (Auto) 1.3 x10^3/uL (1.0-4.8) Monocytes # (Auto) 0.4 x10^3/uL (0.0-1.1) Eosinophils # (Auto) 0.0 x10^3/uL (0.0-0.7) Basophils # (Auto) 0.0 x10^3/uL (0.0-0.2) D-Dimer (Sri) 1.26 ug/mlFEU (0.00-0.50) H Sodium Level 138 mmol/L (136-145) Potassium Level 4.2 mmol/L (3.5-5.1) Chloride Level 103 mmol/L (98-107) Carbon Dioxide Level 22 mmol/L (21-32) Anion Gap 13 (6-14) Blood Urea Nitrogen 20 mg/dL (8-26) Creatinine 1.5 mg/dL (0.7-1.3) H Estimated GFR (Cockcroft-Gault) 57.4 BUN/Creatinine Ratio 13 (6-20) Glucose Level 111 mg/dL (70-99) H Calcium Level 9.3 mg/dL (8.5-10.1) Total Bilirubin 0.6 mg/dL (0.2-1.0) Aspartate Amino Transferase (AST) 28 U/L (15-37) Alanine Aminotransferase (ALT) 34 U/L (16-63) Alkaline Phosphatase 85 U/L (46-116) Lactate Dehydrogenase 218 U/L (85-227) Creatine Kinase 759 U/L (39-308) H Troponin I Quantitative 0.029 ng/mL (0.000-0.055) 0.030 ng/mL (0.000-0.055) C-Reactive Protein, Quantitative 85.2 mg/L (0-3.3) H IU-Eue-Z-Type Natriuretic Peptide 228 pg/mL (0-124) H Total Protein 7.7 g/dL (6.4-8.2) Albumin 4.0 g/dL (3.4-5.0) Albumin/Globulin Ratio 1.1 (1.0-1.7) Laboratory Tests 03/20/20 09:53 Laboratory Tests 03/20/20 09:53 Vital Signs: Vital Signs Date Time Temp Pulse Resp B/P (MAP) Pulse Ox O2 Delivery O2 Flow Rate FiO2 03/20/20 09:54 97.9 108 16 180/96 (124) 98 Room Air 97.9 EKG: EKG: [] Heart Score: Risk Factors: Risk Factors: DM, Current or recent (<one month) smoker, HTN, HLP, family history of CAD, obesity. Risk Scores: Score 0 - 3: 2.5% MACE over next 6 weeks - Discharge Home Score 4 - 6: 20.3% MACE over next 6 weeks - Admit for Clinical Observation Score 7 - 10: 72.7% MACE over next 6 weeks - Early Invasive Strategies Radiology/Procedures: Radiology/Procedures: [] Course & Med Decision Making: Course & Med Decision Making Pertinent Labs and Imaging studies reviewed. (See chart for details) Patient is a 60-year-old male presents to the emergency room complaining of shortness of breath and chest pain. Work-up was ordered to evaluate for cardiac pathology, pneumonia, pulmonary embolism. Patient did have an elevated D-dimer. CT angio of the chest was done and is normal. Troponin was repeated and is unchanged. It is possible that this is from novel coronavirus 19. Covid swab was done. Patient will be placed on steroids. Patient's test results and vitals while in the ED were fully reviewed and discussed with the patient. Patient is stable and at this time does not need admission to the hospital. We have discussed strict return precautions and the importance of following up with their Primary Care Physician. Patient stated understanding and was given an opportunity to ask any questions. Patient is in agreement with plan. Dragon Disclaimer: Dragon Disclaimer: This electronic medical record was generated, in whole or in part, using a voice recognition dictation system. Departure Departure Impression: Primary Impression: Chest pain Additional Impression: Shortness of breath Disposition: 01 DC HOME SELF CARE/HOMELESS Condition: STABLE Referrals: UNKNOWN PCP NAME (PCP) Patient Instructions: Chest Pain (Nonspecific) Additional Instructions: Thank you for visiting [facility]. We appreciate you trusting us with your care. If any additional problems come up please don't hesitate to return to visit us. Follow up with your primary care provider so they can plan additional care if needed and know about the problem that you had today. If symptoms worsen come back to the Emergency Department. Any concerning symptoms that start such as chest pain, shortness of air, weakness or numbness on one side of the body, running high fevers or any other concerning symptoms return to the ER. You have a viral syndrome which may include symptoms like muscle aches, fevers, chills, runny nose, cough, sneezing, sore throat, nausea, vomiting, or diarrhea. One of the potential viruses that you may have is SARS-CoV-2, the virus that causes COVID-19, also known as the Coronavirus. You are just as likely to have a different viral infection such as the common cold, flu, etc. Most patients with the Coronavirus have mild symptoms and recover on their own. Resting, staying hydrated, and sleep based on known cases can be helpful. As of todays visit, you are well enough to go home and treat your symptoms with oral fluids and over the counter medications. Coronavirus testing is not performed on most people with mild symptoms who are being discharged from the emergency department. If Coronavirus testing was performed today the results will not be available for possibly up to 3-4 days. If your result is positive you will be contacted. Please follow the following precautions at home: 1. Stay home except to get medical care. 2. As advised by the CDC, we recommend that you stay in your home and minimize contact with other people. We do not want you to spread the infection. 3. Those who are older or have significant medical issues may have more severe symptoms from this infection. We recommend self-isolation FOR AT LEAST 7 DAYS after your 1st day of symptoms. AFTER you feel better please wait AT LEAST ANOTHER WEEK before returning to regular activities and being around other people. 4. IF you become sicker and have difficulty breathing, chest pain, are unable to eat/drink, severe vomiting, diarrhea, or weakness you may need to return to the Emergency Department. 5. You should restrict activities outside of your home, except for getting me dical care. DO NOT go to work, school, or public areas. Avoid using public transportation, ride sharing, or taxis. 6. Separate yourself from other people in your home. You should use a separate bathroom if possible. 7. Avoid sharing personal household items such as dishes, cups, eating utensils, towels, etc. 8. Clean all high touch surfaces every day (door knobs, counter tops, etc). Use a household cleaning spray or wipe per label instructions. 9. Clean your hands often. Wash your hands with soap and water for at least 20 seconds. 10. Cover your mouth and nose when you cough or sneeze. 11. Throw used tissues in the trash and immediately wash your hands. For additional resources please visit the CDC website or the [facility] ([phone]), you may also call 211 for further information. Scripts Methylprednisolone (MEDROL) 4 Mg Tab.ds.pk 1 PKG PO UD for inflammation, #1 PKG Prov: NICK PAEZ MD 03/20/20 Problem Qualifiers NICK PAEZ MD Mar 20, 2020 10:21
--- NOTE | 2020-03-20 10:22 | RAD ---
Examination: XR CHEST 1V History: Reason: cough, covid? / Spl. Instructions: / History: Comparison/Correlation: 11/12/2018 two-view chest x-ray exam Findings: Upright portable frontal view of chest was obtained. Heart size and pulmonary vasculature a re normal. No infiltrate or effusion. No pneumothorax. Dextroconvex scoliosis of the thoracic spine i s present. Impression: No active disease. Electronically signed by: Markel Daley MD (03/20/2020 10:19 AM) [id number]
[2020-03-20 10:28] LABS: BASO % 1 % (0-3); EOS % 1 % (0-3); HEMATOCRIT 38.2 % (39.0-53.0); HEMOGLOBIN 12.7 g/dL (13.0-17.5); LYMPH # 1.3 x10^3/uL (1.0-4.8); LYMPH % 20 % (24-48); MEAN CORPUSCULAR HEMOGLOBIN 28 pg (25-35); MEAN CORPUSCULAR HGB CONC 33 g/dL (31-37); MEAN CORPUSCULAR VOLUME 83 fL (79-100); MONO # 0.4 x10^3/uL (0.0-1.1); MONO % 6 % (0-9); NEUT # 4.5 x10^3/uL (1.8-7.7); NEUT % 72 % (31-73); PLATELET COUNT 198 x10^3/uL (140-400); RED CELL DISTRIBUTION WIDTH 14.3 % (11.5-14.5); WHITE BLOOD COUNT 6.2 x10^3/uL (4.0-11.0)
[2020-03-20 10:34] LABS: CALCIUM 9.3 mg/dL (8.5-10.1); CREATININE 1.5 mg/dL (0.7-1.3); GFR 57.4; POTASSIUM 4.2 mmol/L (3.5-5.1)
[2020-03-20 10:39] LABS: ALBUMIN/GLOBULIN RATIO 1.1 (1.0-1.7); C-REACTIVE PROTEIN 85.2 mg/L (0-3.3); TOTAL BILIRUBIN 0.6 mg/dL (0.2-1.0); TOTAL PROTEIN 7.7 g/dL (6.4-8.2)
[2020-03-20] MEDS ORDERED: IOHEXOL 350 MG/ML 100 ML VIAL. IV ONE (11:00)
--- NOTE | 2020-03-20 11:20 | RAD ---
CTA CHEST INDICATION: chest pain, soa, elevated ddimer Comparison: Radiograph 03/20/2020. TECHNIQUE: Following the uneventful administration of intravenous contrast, 90 cc Omnipaque 350, axia l CT sections were obtained through the lungs and upper abdomen. Multiplanar reconstructions and MIP images were obtained. PQRS compliance statement: One or more of the following individualized dose reduction techniques were utilized for this examinat ion: 1. Automated exposure control 2. Adjustment of the mA and/or kV according to patient size 3. Use of iterative reconstruction technique FINDINGS: Pulmonary arteries: No evidence of pulmonary thromboembolic disease. Lungs and Airways: No pulmonary mass or consolidation. Calcified pulmonary granulomas. No abnormality of the central airways. Pleura: The pleural spaces are normal. Heart and Mediastinum: The visualized thyroid is normal in size and attenuation. No axillary or supra clavicular lymphadenopathy. No mediastinal, hilar or retrocrural lymphadenopathy. The heart and peric ardium are within normal limits. Normal caliber thoracic aorta.. Abdomen: Cholelithiasis. Bones and Soft Tissues: Right convex thoracic curvature. Degenerative changes of the spine. IMPRESSION: 1. No evidence of pulmonary thromboembolic disease. 2. No pulmonary mass or consolidation. 3. Cholelithiasis. Electronically signed by: Jos Burns MD (03/20/2020 11:17 AM) [id number]
[2020-03-20] MEDS ORDERED: DEXAMETHASONE SOD PHOS 20 MG/5 ML VIAL. IV ONE (12:15)
[2020-03-20] MEDS ORDERED: METH4TAB2 PO (13:18)
[2020-03-20 13:49] VITALS: BP 173/101
== END 2020-03-20 13:36 | disposition home or self-care (01) ==
LOC: ER 09:39
DX: R07.89 Other chest pain (principal); Z20.828 Contact with and (suspected) exposure to other viral communicable diseases; R06.02 Shortness of breath; E78.00 Pure hypercholesterolemia, unspecified; I10 Essential (primary) hypertension; Z87.891 Personal history of nicotine dependence; Z90.89 Acquired absence of other organs; Z98.890 Other specified postprocedural states; Z88.0 Allergy status to penicillin; Z88.8 Allergy status to other drugs, medicaments and biological substances
CPT/HCPCS: 36415; 71045; 71275; 80053; 82550; 83615; 83880; 84484; 85025; 85379; 86140; 93005; 96374; 99285; C9803; J1100; Q9967; U0003

== ENCOUNTER 2020-11-15 13:07 | Emergency (ER) | payer OTHER, MEDICAID ==
[~2020-11-15] VITALS: Ht 177.8 cm; Wt 99.7 kg
[~2020-11-15 13:07] MED LIST changes: -ISOS30TA4 PO; +ISOS30TA68 PO; +METH4TAB2 PO
[2020-11-15] MEDS ORDERED: IV NORMAL SALINE 1000ML BAG 1,000 ML IV ONE (13:45)
--- NOTE | 2020-11-15 13:54 | PHYS DOC ---
Past Medical History Past Medical History: Diabetes-Type II, High Cholesterol, Hypertension Additional Past Medical Histor: BORDERLINE DM Past Surgical History: Appendectomy, Knee Replacement Additional Past Surgical Histo: BILATERAL KNE REPLACEMENTS, INGUINAL HERNIA Smoking Status: Former Smoker Alcohol Use: None Drug Use: None General Adult EDM: Chief Complaint: Congestion HPI: HPI: Patient is a 60 year old male who presents with last week went to dinner with some ice that came down positive for Covid. 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 He has gotten both of his Covid vaccines. He denies fever, dizziness, syncope, abdominal pain, nausea, vomiting, diarrhea, vision change, focal weakness, chest pain, shortness of air. He has a history of hypertension, high cholesterol, diabetes, appendectomy, bilateral knee repair, inguinal hernia. He states he has not taken any Tylenol or ibuprofen for any of his pains. Review of Systems: Review of Systems: Constitutional: Denies fever or chills. [] Eyes: Denies change in visual acuity. + Watery eyes [] HENT: Denies nasal congestion or sore throat. [] Respiratory: Denies cough or shortness of breath. [] Cardiovascular: Denies chest pain or edema. [] GI: Denies abdominal pain, nausea, vomiting, bloody stools or diarrhea. [] : Denies dysuria. [] Musculoskeletal: Denies back pain or joint pain. + Generalized body aches. + Generalized fatigue [] Integument: Denies rash. [] Neurologic: + Intermittent headache, denies focal weakness or sensory changes. [] Endocrine: Denies polyuria or polydipsia. [] Lymphatic: Denies swollen glands. [] Psychiatric: Denies depression or anxiety. [] Heart Score: C/O Chest Pain: No Risk Factors: Risk Factors: DM, Current or recent (<one month) smoker, HTN, HLP, family history of CAD, obesity. Risk Scores: Score 0 - 3: 2.5% MACE over next 6 weeks - Discharge Home Score 4 - 6: 20.3% MACE over next 6 weeks - Admit for Clinical Observation Score 7 - 10: 72.7% MACE over next 6 weeks - Early Invasive Strategies Current Medications: Current Medications Medications (Trade) Dose Ordered Sig/Austyn Start Time Stop Time Status Last Admin Dose Admin Sodium Chloride 1,000 ml @ 1,000 mls/hr 1X ONCE 11/15/20 13:45 11/15/20 14:44 UNV Allergies: Allergies: Allergies Coded Allergies Type Severity Reaction Last Updated Verified lisinopril Allergy Severe 10/14/18 Yes Physical Exam: PE: Constitutional: Well developed, well nourished, no acute distress, non-toxic appearance. [] HENT: Normocephalic, atraumatic, bilateral external ears normal, oropharynx moist, no oral exudates, nose normal. [] Eyes: PERRLA, EOMI, conjunctiva normal, no discharge. [] Neck: Normal range of motion, no tenderness, supple, no stridor. [] Cardiovascular:Heart rate regular rhythm, no murmur [] Lungs & Thorax: Bilateral breath sounds clear to auscultation [] Abdomen: Bowel sounds normal, soft, no tenderness, no masses, no pulsatile masses. [] Skin: Warm, dry, no erythema, no rash. [] Back: No tenderness, no CVA tenderness. [] Extremities: No tenderness, no cyanosis, no clubbing, ROM intact, no edema. [] Neurologic: Alert and oriented X 3, normal motor function, normal sensory function, no focal deficits noted. [] Psychologic: Affect normal, judgement normal, mood normal. [] Normal physical exam Current Patient Data: Vital Signs: Vital Signs Date Time Temp Pulse Resp B/P (MAP) Pulse Ox O2 Delivery O2 Flow Rate FiO2 11/15/20 13:29 98.4 77 16 140/71 (125) 99 Room Air 98.4 EKG: EK AND READ BY [facility] SINUS RHYTHM AND NO STEMI[] Radiology/Procedures: Radiology/Procedures: [] Impression: [facility] [address] [place] [address] IMAGING REPORT Signed PATIENT: ELENI IRENE ACCOUNT: [id number] : 1960 LOCATION: ER AGE: 60 SEX: M EXAM STATUS: REG ER ORD. PHYSICIAN: MERCEDES GUILLERMO APRN REASON: weakness, bodyaches PROCEDURE: PORTABLE CHEST 1V EXAMINATION: Chest radiograph. VIEWS: Single view COMPARISON: 03/20/2020 INDICATION:60 years, Male, weakness. FINDINGS: Normal cardiomediastinal silhouette. No focal consolidation. No pleural effusion or pneumothorax. No acute osseous process. IMPRESSION: No acute cardiopulmonary process. Electronically signed by: Reba Melendez MD (11/15/2020 2:07 PM) [facility] DICTATED and SIGNED BY: REBA MELENDEZ MD DATE: 11/15/20 [id number] 0 Course & Med Decision Making: Course & Med Decision Making Pertinent Labs and Imaging studies reviewed. (See chart for details) COVID-19 CRITERIA: The patient was evaluated during the global COVID-19 pandemic, and that diagnosis was suspected/considered upon their initial presentation. Their evaluation, treatment and testing was consistent with current guidelines for patients who present with complaints or symptoms that may be related to COVID-19. See HPI. Alert and oriented x4. Ambulatory steady gait. Speaks in full clear sentences. Moving all extremities with equal strengths. No focal weaknesses. Vital signs are within normal limits. Lungs are clear to all station all lobes. Chest x-ray shows no acute findings. Blood work is unremarkable. Creatinine is 1.8 and when looking back it runs around 1.5. He did get a liter of normal saline. He also got dexamethasone in the ED. Patient to quarantine until he gets his Covid results back. [] Luis Disclaimer: Luis Disclaimer: This electronic medical record was generated, in whole or in part, using a voice recognition dictation system. COVID-19 Patient Risks: Age 65 or older: No Sign of co-morbidity: Yes Exp to person + for COVID: Yes Exp to PUI: No Travel from affected area: No Lower respiratory symptoms: No Fever: No Other: Yes (weakness, headache) PPE Use: Full PPE with N95 mask or PAPR: Yes Departure Departure Impression: Primary Impression: Person under investigation for COVID-19 Additional Impressions: Chronic headache Qualified Codes: R51.9 - Headache, unspecified; G89.29 - Other chronic pain Chronic fatigue Disposition: HOME / SELF CARE / HOMELESS Condition: STABLE Referrals: GAUSTAD,MARLA I LEDGER POSTER (PCP) Patient Instructions: Chronic Fatigue Syndrome, Headache and Allergies Additional Instructions: Continue taking all your medications. Follow-up with your primary care physician. Quarantine until you get your Covid results back. Drink plenty of fluids. You have been tested for or diagnosed with COVID-19. It is an infection caused by a new type of coronavirus. COVID-19 will cause cold-like or mild flu symptoms in most. It can cause more severe symptoms like problems breathing in some. There is no treatment for COVID-19. The body will clear the infection over time. Self-care will help to ease discomfort. Steps to Take: Self-Care Rest as needed. Healthy habits may help you feel better. Steps include: Choose healthy foods including fruits and vegetables. Drink water throughout the day. Get plenty of sleep each night. If you smoke, try to quit. It may ease breathing. Avoid alcohol. Keep Others Healthy The virus can spread to others. Droplets are released every time you sneeze or cough. The droplets can get into the mouth, nose, or eyes of people near you and lead to infection. To lower the chances of spreading COVID-19 to others: Stay at home until your doctor has said it is safe to leave. If you tested positive this will mean staying isolated until both of the following are true: At least 7 days have passed since the start of illness. You are free of fever for at least 72 hours without the use of medicine. During this time: - Avoid public areas, events, or transportation. Do not return to work or school until your doctor has said it is safe to do so. - Call ahead if you need to go to a medical center. Let them know you may have COVID-19. It will help them guide you where to go. They may also ask you to wear a facemask when you come to the office. - If you call for emergency medical services, let them know you may have COVID- 19. While at home: - Try to avoid close contact with others. Stay about 6 feet away. - If possible, spend most of your time in a separate room from others. - Use a face mask if you will be in close contact with others such as sharing a room or vehicle. - Have someone wipe down common surfaces in the home. Use household retail event and sales assistant every day on areas like doorknobs, counters, or sinks. - Cough or sneeze into a tissue. Throw the tissue away right after use. If a tissue is not available, cough or sneeze into your elbow. - Wash your hands often. Wash them after sneezing or coughing. Use soap and water and wash for at least 20 seconds. Alcohol based hand top cleaner can be used if soap and water is not available. - Do not prepare food for others. Avoid sharing personal items like forks, spoons, or toothbrushes. - Avoid close contact with pets while you are sick. There is no evidence of the virus passing to pets. This is a safety step until more is known about this virus. Isolation can be frustrating. Social interaction can help. Keep in touch with friends and family through phone and tech options. You can still interact with others in your home, just keep a safe distance of about 6 feet. Follow-up: Your doctors office will check in with you to see if there are any changes in your health. You may be asked to keep track of symptoms to share with them. They will also let you know when you are clear to be in public again. Problems to Look Out For: Contact your doctor if your recovery is not going as you expect. Get emergency care if you have problems such as: - Trouble breathing - Nonstop chest pain or pressure - Changes in awareness, confusion, or problems waking - Lips or face have bluish color - Worsening of symptoms If you think you have an emergency, call for emergency medical services right away. As taken from [facility] MERCEDES GUILLERMO APRN Nov 15, 2020 13:54
--- NOTE | 2020-11-15 14:09 | RAD ---
EXAMINATION: Chest radiograph. VIEWS: Single view COMPARISON: 03/20/2020 INDICATION:60 years, Male, weakness. FINDINGS: Normal cardiomediastinal silhouette. No focal consolidation. No pleural effusion or pneumothorax. No acute osseous process. IMPRESSION: No acute cardiopulmonary process. Electronically signed by: Dang Melendez MD (11/15/2020 2:07 PM) [facility]
[2020-11-15 14:21] LABS: BASO % 1 % (0-3); EOS # 0.1 x10^3/uL (0.0-0.7); EOS % 2 % (0-3); HEMATOCRIT 36.2 % (39.0-53.0); HEMOGLOBIN 12.3 g/dL (13.0-17.5); LYMPH # 1.3 x10^3/uL (1.0-4.8); LYMPH % 39 % (24-48); MEAN CORPUSCULAR HEMOGLOBIN 28 pg (25-35); MEAN CORPUSCULAR HGB CONC 34 g/dL (31-37); MEAN CORPUSCULAR VOLUME 82 fL (79-100); MONO # 0.3 x10^3/uL (0.0-1.1); MONO % 8 % (0-9); NEUT # 1.6 x10^3/uL (1.8-7.7); NEUT % 50 % (31-73); PLATELET COUNT 180 x10^3/uL (140-400); RED CELL DISTRIBUTION WIDTH 14.5 % (11.5-14.5); WHITE BLOOD COUNT 3.2 x10^3/uL (4.0-11.0)
[2020-11-15 14:48] LABS: CALCIUM 8.9 mg/dL (8.5-10.1); CREATININE 1.8 mg/dL (0.7-1.3); GFR 46.5; POTASSIUM 4.4 mmol/L (3.5-5.1)
[2020-11-15 14:54] LABS: ALBUMIN 3.3 g/dL (3.4-5.0); ALBUMIN/GLOBULIN RATIO 0.9 (1.0-1.7); TOTAL BILIRUBIN 0.5 mg/dL (0.2-1.0); TOTAL PROTEIN 7.1 g/dL (6.4-8.2)
[2020-11-15 15:12] VITALS: BP 136/78
--- NOTE | 2020-11-15 21:19 | EKG ---
[facility] [address] [place] [address] Test Date: 2020-11-15 Test Time: 14:00:51 Pat Name: ELENI IRENE Department: Room: Gender: Market Analysis Director: : 1960 Requested By: MERCEDES GUILLERMO Order Number: [id number] Reading MD: Measurements Intervals [place] Rate: 68 P: 48 CT: 174 QRS: -13 QRSD: 76 T: 21 QT: 400 QTc: 430 Interpretive Statements No previous ECG available for comparison
--- NOTE | 2020-11-18 12:38 | NUR ---
IP: Informed pt of negative covid results. Pt verbalized understanding.
== END 2020-11-15 15:30 | disposition home or self-care (01) ==
LOC: ER 13:07
DX: G89.29 Other chronic pain (principal); Z20.822 Contact with and (suspected) exposure to COVID-19; R51.9 Headache, unspecified; R53.82 Chronic fatigue, unspecified; R53.1 Weakness; E11.9 Type 2 diabetes mellitus without complications; E78.00 Pure hypercholesterolemia, unspecified; I10 Essential (primary) hypertension; Z87.891 Personal history of nicotine dependence; Z88.8 Allergy status to other drugs, medicaments and biological substances
CPT/HCPCS: 36415; 71045; 80053; 83735; 84484; 85025; 93005; 96360; 99285; J7030; U0003; U0005